=== PATIENT | female | born 1985 | race African-American/Black ===

== ENCOUNTER 2016-07-16 03:34 | Emergency (ER) | payer SELFPAY ==
[2016-07-16] MEDS ORDERED: HYDROCODONE BIT/HOMATROPINE 5-1.5 MG TABLET PO ONE (07:16)
[2016-07-16] MEDS ORDERED: ALBUTEROL SULFATE HFA (90 MCG/PUFF) 8 GM MDI (1 MDI/ER DISP) IH PRN (07:16)
--- NOTE | 2016-07-16 07:23 | ER Document Report ---
ED General - General Chief Complaint: Cold Symptoms Stated Complaint: HEADACHE,SORE THROAT,COUGH Mode of Arrival: Ambulatory Information source: Patient Notes: 22-year-old female presents with complaints of body aches sore throat headache of one week duration. Patient notes that initially started off with a sore throat denies any fevers or chills nausea vomiting or diarrhea. Patient notes to body aches. Chest wall pain when she coughs TRAVEL OUTSIDE OF THE [place] IN LAST 30 DAYS: No - HPI Onset: Last week Onset/Duration: Persistent Quality of pain: Achy Severity: Moderate Pain Level: 2 Associated symptoms: Nonproductive cough, Headache, Sinus pain/drainage Exacerbated by: Denies Relieved by: Denies Similar symptoms previously: No Recently seen / treated by doctor: No - Related Data Allergies/Adverse Reactions: No Known Allergies Allergy (Verified 05/23/16 13:19) Past Medical History - Social History Smoking Status: Current Every Day Smoker Cigarette use (# per day): Yes Chew tobacco use (# tins/day): No Smoking Education Provided: Yes - Patient counselled regarding cessation for 4 minutes Frequency of alcohol use: Occasional Drug Abuse: None Family History: Arthritis, Hypertension, Malignancy, Other - copd and asthma Patient has suicidal ideation: No Patient has homicidal ideation: No Pulmonary Medical History: Reports: Hx Bronchitis - 2013 Renal/ Medical History: Denies: Hx Peritoneal Dialysis - Immunizations Immunizations up to date: Yes Hx Diphtheria, Pertussis, Tetanus Vaccination: Yes - 2010 Review of Systems - Review of Systems Notes: REVIEW OF SYSTEMS: CONSTITUTIONAL : Denies fever, chills, or sweats. Denies recent illness. EENT: Admits to frontal sinus pressure nasal congestion CARDIOVASCULAR: Denies chest pain. Denies palpitations or racing or irregular heart beat. Denies ankle edema. RESPIRATORY: Admits to nonproductive cough GASTROINTESTINAL: Denies abdominal pain or distention. Denies nausea, vomiting , or diarrhea. Denies blood in vomitus, stools, or per rectum. Denies black, tarry stools. Denies constipation. GENITOURINARY: Denies difficulty urinating, painful urination, burning, frequency, blood in urine, or discharge. FEMALE GENITOURINARY: Denies vaginal bleeding, heavy or abnormal periods, irregular periods. Denies vaginal discharge or odor. MUSCULOSKELETAL: Denies back or neck pain or stiffness. Denies joint pain or swelling. SKIN: Denies rash, lesions or sores. HEMATOLOGIC : Denies easy bruising or bleeding. LYMPHATIC: Denies swollen, enlarged glands. NEUROLOGICAL: Admits headache PSYCHIATRIC: Denies anxiety or stress. Denies depression, suicidal ideation, or homicidal ideation. ALL OTHER SYSTEMS REVIEWED AND NEGATIVE. Dictation was performed using Definition 6 voice recognition software PHYSICAL EXAMINATION: GENERAL: Well-appearing, well-nourished and in no acute distress. HEAD: Atraumatic, normocephalic. EYES: Pupils equal round and reactive to light, extraocular movements intact, conjunctiva are normal. ENT: Frontal sinus tenderness on palpation NECK: Normal range of motion, supple without lymphadenopathy LUNGS: Faint wheezing left upper lobe HEART: Regular rate and rhythm without murmurs ABDOMEN: Soft, nontender, nondistended abdomen. No guarding, no rebound. No masses appreciated. Female : deferred Musculoskeletal: Normal range of motion, no pitting or edema. No cyanosis. NEUROLOGICAL: Cranial nerves grossly intact. Normal speech, normal gait. Normal sensory, motor exams PSYCH: Normal mood, normal affect. SKIN: Warm, Dry, normal turgor, no rashes or lesions noted. Physical Exam - Vital signs Vitals: Temp Pulse Resp BP Pulse Ox 98.7 F 88 18 136/90 H 100 07/16/16 03:43 07/16/16 03:43 07/16/16 03:43 07/16/16 03:43 07/16/16 03:43 Course - Re-evaluation Re-evalutation: 07/16/16 07:22 Physical examination does note family wheezing, patient will be started on albuterol. Influenza strep are negative. Patient will be treated for her headache body aches nonproductive cough with Hycodan tablet. Patient is otherwise stable for discharge After performing a Medical Screening Examination, I estimate there is LOW risk for ACUTE GLAUCOMA, TEMPORAL ARTERITIS, MENINGITIS, INCRANIAL HEMORRHAGE, or ISCHEMIC STROKE thus I consider the discharge disposition reasonable. The patient and I have discussed the diagnosis and risks, and we agree with discharging home with close follow-up with the understanding that symptoms and presentations can change. We also discussed returning to the Emergency Department immediately if new or worsening symptoms occur. We have discussed the symptoms which are most concerning (e.g., changing or worsening symptoms, new numbness or weakness, vomiting, fever) that necessitate immediate return. - Vital Signs Vital signs: Temp Pulse Resp BP Pulse Ox 98.7 F 88 18 136/90 H 100 07/16/16 03:43 07/16/16 03:43 07/16/16 03:43 07/16/16 03:43 07/16/16 03:43 Discharge - Discharge Clinical Impression: Encounter for smoking cessation counseling Acute sinusitis Qualifiers: Sinusitis location: frontal Recurrence: non-recurrent Qualified Code(s): J01.10 - Acute frontal sinusitis, unspecified Condition: Stable Disposition: HOME, SELF-CARE Instructions: Headache ([facility]) Additional Instructions: You have been given follow up instructions including low cost follow up with one of the local primary care offices. Follow up with them tomorrow for further care and reevaluation. Return immediately if symptoms worsen Prescriptions: Hydrocodone Bit/Homatropine [Hycodan 5-1.5 mg Tablet] 1 tab PO Q4HP PRN #24 tablet PRN Reason: Forms: Smoking Cessation Education
[2016-07-16 07:45] VITALS: BP 129/90
== END 2016-07-16 07:46 | disposition home or self-care (01) ==
LOC: ER 03:34
DX: J01.10 Acute frontal sinusitis, unspecified (principal); R51 Headache; J02.9 Acute pharyngitis, unspecified; R05 Cough; R07.89 Other chest pain; F17.210 Nicotine dependence, cigarettes, uncomplicated
CPT/HCPCS: 87070; 87804; 87880; 99283; 99406

== ENCOUNTER 2016-11-18 09:36 | Emergency (ER) | payer SELFPAY ==
[2016-11-18 09:45] VITALS: BP 127/72
--- NOTE | 2016-11-18 10:02 | ER Document Report ---
ED Respiratory Problem - General Chief Complaint: Cold Symptoms Stated Complaint: DIFFICULTY BREATHING,COUGH Time Seen by Provider: 11/18/16 09:52 Mode of Arrival: Ambulatory Notes: 30-year-old female presents to ED for cough and cold symptoms 3 days. States she has nasal congestion and drainage headache with sinus pressure cough chest pain and back pain when she coughs which is reproducible with the cough and with palpation sore throat. She states she fell she had a fever last night took some Tylenol but does not have a thermometer at home. Does not know her last menstrual period as she is on Depo. TRAVEL OUTSIDE OF THE [place] IN LAST 30 DAYS: No - HPI Patient complains to provider of: Cough Onset: Other - 3 days Duration: Continuous Initiating Event: URI Quality of pain: Achy Severity: Severe Pain Level: 5 Context: Smoker Cough: Nonproductive Sputum amount: None Associated symptoms: Chest pain/discomfort, Congestion, Cough, PND, Runny nose, Sinus pain/pressure. denies: Wheezing Similar symptoms previously: Yes Recently seen / treated by doctor: No - Related Data Allergies/Adverse Reactions: No Known Allergies Allergy (Verified 11/18/16 09:40) Past Medical History - General Information source: Patient Last Menstrual Period: depo - Social History Smoking Status: Current Every Day Smoker Cigarette use (# per day): Yes - 1/3 ppd Chew tobacco use (# tins/day): No Smoking Education Provided: Yes - less Frequency of alcohol use: Occasional Drug Abuse: None Occupation: [employer] Lives with: Family Family History: Arthritis, Hypertension, Malignancy, Other - copd and asthma Patient has suicidal ideation: No Patient has homicidal ideation: No - Past Medical History Cardiac Medical History: Reports: None Pulmonary Medical History: Reports: Hx Bronchitis - 2013 EENT Medical History: Reports: None Neurological Medical History: Reports: None Endocrine Medical History: Reports: None Renal/ Medical History: Reports: Hx Ovarian Cysts Malignancy Medical History: Reports: None GI Medical History: Reports: None Musculoskeltal Medical History: Reports None Skin Medical History: Reports None Psychiatric Medical History: Reports: None Traumatic Medical History: Reports: None Infectious Medical History: Reports: None Past Surgical History: Reports: Hx Gynecologic Surgery - colposcopy - Immunizations Immunizations up to date: Yes Hx Diphtheria, Pertussis, Tetanus Vaccination: Yes - 2010 Review of Systems - Review of Systems Constitutional: No symptoms reported EENT: Nose discharge, Sinus discharge, Throat swelling Cardiovascular: No symptoms reported Respiratory: Cough Gastrointestinal: No symptoms reported Genitourinary: No symptoms reported Female Genitourinary: No symptoms reported Musculoskeletal: No symptoms reported Skin: No symptoms reported Hematologic/Lymphatic: No symptoms reported Neurological/Psychological: No symptoms reported -: Yes All other systems reviewed and negative Physical Exam - Vital signs Vitals: Temp Pulse Resp BP Pulse Ox 98.2 F 91 16 127/72 H 98 11/18/16 09:41 11/18/16 09:41 11/18/16 09:41 11/18/16 09:41 11/18/16 09:41 Interpretation: Normal - General General appearance: Appears well, Alert - HEENT Head: Normocephalic, Atraumatic Eyes: Normal Pupils: PERRL Ears: Normal External canal: Normal Tympanic membrane: Normal Sinus: Normal Nasal: Swelling, Clear rhinorrhea Mouth/Lips: Normal Mucous membranes: Normal Pharynx: Post nasal drainage Neck: Normal - Respiratory Respiratory status: No respiratory distress Chest status: Nontender Breath sounds: Nonproductive cough Chest palpation: Normal - Cardiovascular Rhythm: Regular Heart sounds: Normal auscultation Murmur: No - Abdominal Inspection: Normal Distension: No distension Bowel sounds: Normal Tenderness: Nontender Organomegaly: No organomegaly - Back Back: Normal, Nontender - Extremities General upper extremity: Normal inspection, Nontender, Normal color, Normal ROM , Normal temperature General lower extremity: Normal inspection, Nontender, Normal color, Normal ROM , Normal temperature, Normal weight bearing. No: Jannie's sign - Neurological Neuro grossly intact: Yes Cognition: Normal Orientation: AAOx4 Chloé Coma Scale Eye Opening: Spontaneous [place] Coma Scale Verbal: Oriented Chloé Coma Scale Motor: Obeys Commands Chloé Coma Scale Total: 15 Speech: Normal Motor strength normal: LUE, RUE, LLE, RLE Sensory: Normal - Psychological Associated symptoms: Normal affect, Normal mood - Skin Skin Temperature: Warm Skin Moisture: Dry Skin Color: Normal Course - Vital Signs Vital signs: Temp Pulse Resp BP Pulse Ox 98.2 F 91 16 127/72 H 98 11/18/16 09:41 11/18/16 09:41 11/18/16 09:41 11/18/16 09:41 11/18/16 09:41 Discharge - Discharge Clinical Impression: URI (upper respiratory infection) Qualifiers: URI type: unspecified URI Qualified Code(s): J06.9 - Acute upper respiratory infection, unspecified Condition: Stable Disposition: HOME, SELF-CARE Instructions: Family Physicians / Practices Additional Instructions: UPPER RESPIRATORY ILLNESS: You have a viral infection of the respiratory passages -- a "cold." This common infection causes nasal congestion, drainage, and often sore throat and cough. It is highly contagious. The disease usually lasts about 10 to 14 days. There is no "cure" for the viral infection -- it must run its course. If there is a complication, such as bacterial infection in the nose, sinuses, middle ear, or bronchial tubes, antibiotics may be required. The antibiotics won't affect the virus. Drink plenty of fluids. A humidifier may help. An expectorant medication or decongestant may make you more comfortable. Use acetaminophen or ibuprofen for fever or aches. See the doctor if fever persists over two days, if there is any significant worsening of your symptoms, or if you simply fail to improve as expected. DECONGESTANT MEDICATION: A decongestant medicine has been prescribed. Often this medicine is combined in the same tablet with an antihistamine or expectorant. This type of medicine is helpful in treating a bad cold or sinus condition, as well as in treatment of the nasal congestion of hay fever. It is not of much benefit for lung infections. Decongestant medicines are related to stimulants. They can cause an increase in blood pressure and heart rate. Persons with heart disease and high blood pressure should not take decongestants without discussing this with the physician. If you develop palpitations, chest pain, headache, or tremors, stop the medicine and consult your physician. COUGH-SUPPRESSANT & EXPECTORANT MEDICATION: You are to use a cough medication as needed for relief of symptoms. This medicine is a combination of an expectorant (to make the mucous thinner and more easily "coughed up") and a cough suppressant (to reduce the frequency of coughing). The cough-suppressant medicine is related to narcotics. You may experience mild nausea and sleepiness. Some patients who are very sensitive to narcotics may have stomach pain from this medicine. Taking the medicine with food reduces these side effects. Do not drive or work with machinery until you know how this medicine affects you. The expectorant should have no side effects. Iodine-containing expectorants (such as organidin) should not be taken by persons with active thyroid disease unless approved by your doctor. Call the doctor if you develop shortness of breath, hives, rash, itching, lightheadedness, or severe nausea and vomiting. USE OF ACETAMINOPHEN (Tylenol): Acetaminophen may be taken for pain relief or fever control. It's much safer than aspirin, offering a wider range of "safe" dosages. It is safe during . Some brand names are Tylenol, Panadol, Datril, Anacin 3, Tempra, and Liquiprin. Acetaminophen can be repeated every four hours. The following are maximum recommended dosages: >89 pounds or adults 650 mg to 900 mg Acetaminophen can be repeated every four hours. Maximum dose not to exceed 4000 mg a day. SMOKING: If you smoke, you should stop smoking. The tar and chemicals in cigarette smoke are harmful. Smoking has been shown to cause: emphysema chronic bronchitis lung cancer mouth and throat cancer stomach and pancreas cancer premature aging defects In addition, smoking increases ear and lung infections in children of smokers. FOLLOW-UP CARE: If you have been referred to a physician for follow-up care, call the physician s office for an appointment as you were instructed or within the next two days. If you experience worsening or a significant change in your symptoms, notify the physician immediately or return to the Emergency Department at any time for re-evaluation. Forms: Elevated Blood Pressure, Smoking Cessation Education, Return to Work
[2016-11-18] MEDS ORDERED: LORATADINE 10 MG TABLET PO ONE (10:27)
[2016-11-18] MEDS ORDERED: IBUPROFEN 800 MG TABLET PO ONE (10:27)
[2016-11-18] MEDS ORDERED: GUAIFENESIN 600 MG TABLET.SA PO ONE (10:27)
[2016-11-18] MEDS ORDERED: PSEUDOEPHEDRINE HCL 30 MG TABLET PO ONE (10:27)
== END 2016-11-18 10:45 | disposition home or self-care (01) ==
LOC: ER 09:36
DX: J06.9 Acute upper respiratory infection, unspecified (principal); R06.00 Dyspnea, unspecified; R09.81 Nasal congestion; F17.210 Nicotine dependence, cigarettes, uncomplicated
CPT/HCPCS: 87070; 87077; 87880; 99283

== ENCOUNTER 2017-01-06 08:23 | Emergency (ER) | payer SELFPAY ==
[2017-01-06 08:39] VITALS: BP 118/76
[2017-01-06] MEDS ORDERED: DEXAMETHASONE 4 MG TABLET PO ONE (08:56)
[2017-01-06] MEDS ORDERED: IBUPROFEN 600 MG TABLET PO ONE (08:57)
--- NOTE | 2017-01-06 08:59 | ER Document Report ---
ED ENT - General Chief Complaint: Sore Throat Stated Complaint: SORE THROAT Time Seen by Provider: 01/06/17 08:39 Notes: The patient is a 31-year-old female who presents with 4 days of sore throat and fever up to 101. She is having pain when she swallows, but she is able to drink liquids. She denies cough, neck stiffness, nausea, vomiting or abdominal pain. TRAVEL OUTSIDE OF THE [place] IN LAST 30 DAYS: No - Related Data Allergies/Adverse Reactions: No Known Allergies Allergy (Verified 11/18/16 09:40) Past Medical History - General Information source: Patient - Social History Smoking Status: Current Every Day Smoker Family History: Arthritis, Hypertension, Malignancy, Other - copd and asthma Pulmonary Medical History: Reports: Hx Bronchitis - 2013 Renal/ Medical History: Reports: Hx Ovarian Cysts. Denies: Hx Peritoneal Dialysis Past Surgical History: Reports: Hx Gynecologic Surgery - colposcopy - Immunizations Immunizations up to date: Yes Hx Diphtheria, Pertussis, Tetanus Vaccination: Yes - 2010 Review of Systems - Review of Systems Notes: REVIEW OF SYSTEMS: CONSTITUTIONAL: +fevers, -chills EENT: -eye pain, -difficulty swallowing, -nasal congestion, +sore throat CARDIOVASCULAR:-chest pain, -syncope. RESPIRATORY: -cough, -SOB GASTROINTESTINAL: -abdominal pain, - nausea, -vomiting, -diarrhea GENITOURINARY: -dysuria, -hematuria MUSCULOSKELETAL: -back pain, -neck pain SKIN: -rash or skin lesions. HEMATOLOGIC: -easy bruising or bleeding. LYMPHATIC: -swollen, enlarged glands. NEUROLOGICAL: -altered mental status or loss of consciousness, -headache, - neurologic symptoms PSYCHIATRIC: -anxiety, -depression. ALL OTHER SYSTEMS REVIEWED AND NEGATIVE. Physical Exam - Vital signs Vitals: Temp Pulse Resp BP Pulse Ox 98.2 F 84 16 118/76 100 01/06/17 08:33 01/06/17 08:33 01/06/17 08:33 01/06/17 08:01/06/17 08:33 - Notes Notes: PHYSICAL EXAMINATION: GENERAL: Well-appearing, well-nourished and in no acute distress. HEAD: Atraumatic, normocephalic. EYES: Pupils equal round and reactive to light, extraocular movements intact, sclera anicteric, conjunctiva are normal. ENT: nares patent, symmetrical oropharynx erythematous with exudates. Moist mucous membranes. NECK: Normal range of motion, supple with right-sided anterior cervical lymphadenopathy LUNGS: Breath sounds clear to auscultation bilaterally and equal. No wheezes rales or rhonchi. HEART: Regular rate and rhythm without murmurs ABDOMEN: Soft, nontender, normoactive bowel sounds. No guarding, no rebound. No masses appreciated. EXTREMITIES: Normal range of motion, no pitting or edema. No cyanosis. NEUROLOGICAL: Cranial nerves grossly intact. Normal speech, normal gait. Normal sensory and motor exams. PSYCH: Normal mood, normal affect. SKIN: Warm, Dry, normal turgor, no rashes or lesions noted. Course - Re-evaluation Re-evalutation: Patient had positive strep culture last month. She has 4 Centor criteria. Will treat presumably for strep pharyngitis with steroids and amoxicillin with follow-up with her primary care physician. No evidence of MID WIFE, RPA or epiglottitis at this time. - Vital Signs Vital signs: Temp Pulse Resp BP Pulse Ox 98.2 F 84 16 118/76 100 01/06/17 08:33 01/06/17 08:33 01/06/17 08:33 01/06/17 08:33 01/06/17 08:33 Discharge - Discharge Clinical Impression: Strep pharyngitis Condition: Stable Disposition: HOME, SELF-CARE Additional Instructions: SORE THROAT: Sore throats may be caused by viruses, bacteria, or fungi. Most are due to a virus, and must get better on their own. Bacterial sore throats, particularly those due to "strep," need treatment with antibiotics. If an antibiotic is prescribed, be sure to take the medication for a full 10 days. Failure to take the antibiotic can result in complications such as rheumatic fever. Sometimes, an injection of antibiotics is given instead of pills or liquid. This single "shot" is equal in effectiveness to the oral medication. To relieve symptoms, take acetaminophen for pain. Sip clear liquids frequently, or eat popsicles or ice chips. Anesthetic sprays or lozenges may help. Make sure the air in the room is not too dry. Avoid using decongestants or antihistamines. Call the doctor if there is no improvement in two days, or if you have difficulty breathing, increasing throat pain, high fever, rash, or frequent vomiting. STREP THROAT: Your sore throat is due to the streptococcus germ (strep throat). Strep throat usually makes you feel quite ill with fever and aches, headache, swollen sore throat, and tender bumps under the angles of the jaw. Strep throat requires antibiotic treatment. Although the sore throat may go away by itself, complications such as rheumatic fever, kidney disease, or throat abscess can occur. We usually prescribe antibiotics by mouth. Be sure to take the medicine until it's gone. If you stop early, the strep may come back. If you are vomiting, are severely ill, or can't remember to take pills, we can give you an antibiotic shot. Take acetaminophen or ibuprofen for pain and fever. Sip frequent clear liquids, or use popsicles or ice chips. Anesthetic sprays or lozenges may help. Make sure the air in the room is not too dry. Avoid using decongestants or antihistamines. Call the doctor if there is no improvement in three days, or if you have difficulty breathing, increasing throat pain, high fever, rash, or frequent vomiting. STEROID MEDICATION: You have been given a medicine of the cortisone/steroid class. This medication is used to control inflammation or allergy. It is usually only given for a short period of time, until the acute process subsides. There are usually no side effects from short-term use of cortisone-like medications. Some persons feel an increased sense of well-being and are not sleepy at bedtime. Long-term use of cortisone medications is best avoided, unless required for a severe condition. If your condition does not remit, or relapses after the course of corticosteroid medication, you should consult your physician. FOLLOW-UP CARE: If you have been referred to a physician for follow-up care, call the physician s office for an appointment as you were instructed or within the next two days. If you experience worsening or a significant change in your symptoms, notify the physician immediately or return to the Emergency Department at any time for re-evaluation. Prescriptions: Amoxicillin 1 tab PO BID #14 tab Forms: Return to Work
== END 2017-01-06 09:08 | disposition home or self-care (01) ==
LOC: ER 08:23
DX: J02.0 Streptococcal pharyngitis (principal); J02.9 Acute pharyngitis, unspecified; R50.9 Fever, unspecified; F17.200 Nicotine dependence, unspecified, uncomplicated
CPT/HCPCS: 99282

== ENCOUNTER 2017-07-12 12:01 | Emergency (ER) | payer SELFPAY ==
[2017-07-12] MEDS ORDERED: IBUPROFEN 800 MG TABLET PO ONE (13:16)
--- NOTE | 2017-07-12 13:17 | ER Document Report ---
HPI - HPI Patient complains to provider of: Sore throat, body aches Onset: Other - 3 days Onset/Duration: Persistent Quality of pain: Achy Pain Level: 5 Associated Symptoms: Chest pain, Sore throat. denies: Nonproductive cough, Productive cough, Diarrhea, Nausea, Vomiting Exacerbated by: Denies Relieved by: Denies Similar symptoms previously: No Recently seen / treated by doctor: No - ROS ROS below otherwise negative: Yes Systems Reviewed and Negative: Yes All other systems reviewed and negative - CONSTITUTIONAL Constitutional: DENIES: Fever, Chills - EENT EENT: REPORTS: Sore Throat - NEURO Neurology: DENIES: Headache - CARDIOVASCULAR Cardiovascular: REPORTS: Chest pain - RESPIRATORY Respiratory: DENIES: Trouble Breathing, Coughing - GASTROINTESTINAL Gastrointestinal: DENIES: Abdominal Pain, Nausea, Patient vomiting - REPRODUCTIVE Reproductive: DENIES: : - MUSCULOSKELETAL Musculoskeletal: REPORTS: Back Pain. DENIES: Neck Pain - DERM Skin Color: Normal Skin Problems: None Past Medical History - General Information source: Patient - Social History Smoking Status: Never Smoker Frequency of alcohol use: Occasional Drug Abuse: None Occupation: [employer] Lives with: Family Family History: Arthritis, Hypertension, Malignancy, Other - copd and asthma Pulmonary Medical History: Reports: Hx Bronchitis - 2013 Renal/ Medical History: Reports: Hx Ovarian Cysts. Denies: Hx Peritoneal Dialysis Past Surgical History: Reports: Hx Gynecologic Surgery - colposcopy - Immunizations Immunizations up to date: Yes Hx Diphtheria, Pertussis, Tetanus Vaccination: Yes - 2010 Vertical Provider Document - CONSTITUTIONAL Agree With Documented VS: Yes Exam Limitations: No Limitations General Appearance: WD/WN, No Apparent Distress - INFECTION CONTROL TRAVEL OUTSIDE OF THE [place] IN LAST 30 DAYS: No - HEENT HEENT: Atraumatic, Normocephalic, Pharyngeal Tenderness, Pharyngeal Erythema. negative: Pharyngeal Exudate, Tympanic Membrane Red, Tympanic Membrane Bulging - NECK Neck: Normal Inspection, Supple. negative: Lymphadenopathy-Left, Lymphadenopathy-Right - RESPIRATORY Respiratory: Breath Sounds Normal, No Respiratory Distress. negative: Chest Non -Tender - Anterior chest wall tenderness with palpation, Rales, Rhonchi, Wheezing O2 Sat by Pulse Oximetry: 100 - CARDIOVASCULAR Cardiovascular: Regular Rate, Regular Rhythm, No Murmur - GI/ABDOMEN Gastrointestinal: Abdomen Soft, Abdomen Non-Tender - BACK Back: CVA Tenderness-Right, CVA Tenderness-Left - MUSCULOSKELETAL/EXTREMETIES Musculoskeletal/Extremeties: JORGE BURRIS - NEURO Level of Consciousness: Awake, Alert, Appropriate Motor/Sensory: No Motor Deficit - DERM Integumentary: Warm, Dry, No Rash Course - Re-evaluation Re-evalutation: 07/12/17 14:46 The patient has atypical chest pain as the patient's chest pain is not suggestive of pulmonary embolus, cardiac ischemia, aortic dissection, or other serious etiology. Given the extremely low risk of these diagnoses for the test in evaluation for these possibilities does not appear to be indicated at this time. Patient has been instructed to return if the symptoms worsen or change in any way. Without any previous cardiac history. Patient's chest pain symptoms reproducible with palpation and patient has generalized body aches. No respiratory distress, no concern for pneumonia at this time. - Vital Signs Vital signs: Temp Pulse Resp BP Pulse Ox 98.1 F 80 20 122/66 100 07/12/17 12:04 07/12/17 12:04 07/12/17 12:04 07/12/17 12:04 07/12/17 12:04 - Laboratory Laboratory results interpreted by me: 07/12/17 14:45 Labs- Entire Visit 07/12/17 07/12/17 12:33 13:40 Urine Color YELLOW Urine Appearance SLIGHTLY-CLOUDY Urine pH 5.0 Ur Specific Newcomb 1.032 Urine Protein NEGATIVE Urine Glucose (UA) NEGATIVE Urine Ketones TRACE H Urine Blood NEGATIVE Urine Nitrite NEGATIVE Urine Bilirubin NEGATIVE Urine Urobilinogen 4.0 H Ur Leukocyte Esterase NEGATIVE Urine WBC (Auto) 1 Urine RBC (Auto) 3 Squamous Epi Cells Auto 1 Urine Mucus (Auto) MOD Urine Ascorbic Acid NEGATIVE Group A Strep Rapid NEGATIVE - Diagnostic Test Radiology reviewed: Reports reviewed - EKG Interpretation by Me EKG shows normal: Sinus rhythm Rate: Normal Discharge - Discharge Clinical Impression: Sore throat, Myalgia Chest pain Qualifiers: Chest pain type: unspecified Qualified Code(s): R07.9 - Chest pain, unspecified Condition: Stable Disposition: HOME, SELF-CARE Instructions: Chest Wall Pain ([facility]), Myalagia (Muscle Pain) ([facility]), Sore Throat ([facility]) Additional Instructions: Return immediately for any new or worsening symptoms Followup with your primary care provider, call tomorrow to make a followup appointment Culture is pending, we will call if you need any different treatment Prescriptions: Naproxen [Naprosyn 250 Nmg Tablet] 1 tab PO BID #14 tablet Forms: Return to Work Referrals: [facility] [Provider Group] - Follow up as needed [facility] [Provider Group] - Follow up as needed
--- NOTE | 2017-07-12 13:50 | RADIOLOGY REPORT (SQ) ---
EXAM DESCRIPTION: CHEST PA/LAT COMPLETED DATE/TIME: 07/12/2017 1:30 pm REASON FOR STUDY: cp COMPARISON: February 2014 EXAM PARAMETERS: NUMBER OF VIEWS: two views TECHNIQUE: Digital Frontal and Lateral radiographic views of the chest acquired. RADIATION DOSE: NA LIMITATIONS: none FINDINGS: LUNGS AND PLEURA: No opacities, masses or pneumothorax. No pleural effusion. MEDIASTINUM AND HILAR STRUCTURES: No masses or contour abnormalities. HEART AND VASCULAR STRUCTURES: Heart normal size. No evidence for failure. BONES: No acute findings. HARDWARE: None in the chest. OTHER: No other significant finding. IMPRESSION: NO SIGNIFICANT RADIOGRAPHIC FINDING IN THE CHEST. TECHNICAL DOCUMENTATION: JOB ID: [id number] [employer]- All Rights Reserved
[2017-07-12 14:11] LABS: APPEARANCE,URINE SLIGHTLY-CLOUDY; BILIRUBIN,URINE NEGATIVE (NEGATIVE); COLOR,URINE YELLOW; GLUCOSE, URINE NEGATIVE (NEGATIVE); KETONES,URINE TRACE mg/dL (NEGATIVE); LEUKOCYTE ESTERASE,URINE NEGATIVE (NEGATIVE); NITRITE,URINE NEGATIVE (NEGATIVE); PROTEIN,URINE NEGATIVE (NEGATIVE); URINE SPECIFIC GRAVITY 1.032
[2017-07-12 14:56] VITALS: BP 120/65
--- NOTE | 2017-07-12 19:02 | EKG REPORT ---
SEVERITY:- NORMAL ECG - SINUS RHYTHM : Confirmed by: Sudheer Watson MD 12-Jul-2017 19:01:26
== END 2017-07-12 14:56 | disposition home or self-care (01) ==
LOC: ER 12:01
DX: J02.9 Acute pharyngitis, unspecified (principal); M79.1 Myalgia; R07.9 Chest pain, unspecified
CPT/HCPCS: 71046; 81001; 87070; 87880; 93005; 93010; 99284

== ENCOUNTER 2018-05-07 16:49 | Emergency (ER) | payer SELFPAY ==
[2018-05-07 16:54] VITALS: BP 104/61
[2018-05-07] MEDS ORDERED: PREDNISONE 20 MG TABLET PO ONE (17:37)
[2018-05-07] MEDS ORDERED: IPRATROPIUM/ALBUTEROL 0.5-2.5 MG/3 ML AMPUL NEB ONE (17:37)
[2018-05-07] MEDS: ALBUTEROL SULFATE 0.083% NEB 2.5 MG/3 ML AMPUL NEB SCH ×2 (17:46→18:24)
--- NOTE | 2018-05-07 18:34 | RADIOLOGY REPORT (SQ) ---
EXAM DESCRIPTION: CHEST 2 VIEWS COMPLETED DATE/TIME: 05/07/2018 6:16 pm REASON FOR STUDY: cough congestion wheezing fever COMPARISON: 07/12/2017. EXAM PARAMETERS: NUMBER OF VIEWS: two views TECHNIQUE: Digital Frontal and Lateral radiographic views of the chest acquired. RADIATION DOSE: NA LIMITATIONS: none FINDINGS: LUNGS AND PLEURA: No opacities, masses or pneumothorax. No pleural effusion. MEDIASTINUM AND HILAR STRUCTURES: No masses or contour abnormalities. HEART AND VASCULAR STRUCTURES: Heart normal size. No evidence for failure. BONES: No acute findings. HARDWARE: None in the chest. OTHER: No other significant finding. IMPRESSION: NO ACUTE RADIOGRAPHIC FINDING IN THE CHEST. TECHNICAL DOCUMENTATION: JOB ID: [id number] [employer]- All Rights Reserved Reading location - IP/workstation name: [email or web address]
[2018-05-07] MEDS ORDERED: ACETAMINOPHEN 325 MG TABLET PO ONE (18:59)
--- NOTE | 2018-05-07 19:05 | ER Document Report ---
ED Respiratory Problem - General Chief Complaint: Congestion Stated Complaint: SORE THROAT Time Seen by Provider: 05/07/18 17:19 Mode of Arrival: Ambulatory Information source: Patient Notes: 32-year-old female presents to ED for complaint of fever cough congestion sore throat chest discomfort and wheezing. She states the cough and cold congestion started Tuesday or Tuesday but the fever started yesterday. She states she been taking [id number] medications with no improvement. She states she has not taken ibuprofen since [employer]. Patient is alert and oriented, pupils equal react light, patient is speaking in full sentences but she does have a wheeze audible. Patient is coughing and congested. Patient walking with a even steady gait. TRAVEL OUTSIDE OF THE [place] IN LAST 30 DAYS: No - HPI Patient complains to provider of: Cough Onset: Other - See above Duration: Worse/persistent Initiating Event: URI Quality of pain: Achy, Other Severity: Moderate Pain Level: 3 Short of Breath: Mild Cough: Nonproductive Associated symptoms: Chills, Congestion, Cough, Fever, PND, Runny nose, Sinus pain/pressure, Wheezing Similar symptoms previously: Yes Recently seen / treated by doctor: No - Related Data Allergies/Adverse Reactions: No Known Allergies Allergy (Verified 07/12/17 12:02) Past Medical History - General Information source: Patient - Social History Smoking Status: Former Smoker Chew tobacco use (# tins/day): No Frequency of alcohol use: Occasional Drug Abuse: None Lives with: Family Family History: Arthritis, Hypertension, Malignancy, Other - copd and asthma Patient has suicidal ideation: No Patient has homicidal ideation: No - Past Medical History Cardiac Medical History: Reports: None Pulmonary Medical History: Reports: Hx Bronchitis - 2013 EENT Medical History: Reports: None Neurological Medical History: Reports: None Endocrine Medical History: Reports: None Renal/ Medical History: Reports: Hx Ovarian Cysts Malignancy Medical History: Reports: None GI Medical History: Reports: None Past Surgical History: Reports: Hx Gynecologic Surgery - colposcopy - Immunizations Immunizations up to date: Yes Hx Diphtheria, Pertussis, Tetanus Vaccination: Yes - 2010 Review of Systems - Review of Systems Notes: REVIEW OF SYSTEMS: CONSTITUTIONAL : Complains of cough cold congestion since Tuesday and fever since yesterday EENT: Complains of cough congestion sore throat fever see HPI CARDIOVASCULAR: Denies chest pain. Denies palpitations or racing or irregular heart beat. Denies ankle edema. RESPIRATORY: Complains of cough cold congestion sore throat since Tuesday, fever yesterday GASTROINTESTINAL: Denies abdominal pain or distention. Denies nausea, vomiting , or diarrhea. Denies blood in vomitus, stools, or per rectum. Denies black, tarry stools. Denies constipation. GENITOURINARY: Denies difficulty urinating, painful urination, burning, frequency, blood in urine, or discharge. FEMALE GENITOURINARY: Denies vaginal bleeding, heavy or abnormal periods, irregular periods. Denies vaginal discharge or odor. MUSCULOSKELETAL: Denies back or neck pain or stiffness. Denies joint pain or swelling. SKIN: Denies rash, lesions or sores. HEMATOLOGIC : Denies easy bruising or bleeding. LYMPHATIC: Denies swollen, enlarged glands. NEUROLOGICAL: Denies confusion or altered mental status. Denies passing out or loss of consciousness. Denies dizziness or lightheadedness. Denies headache. Denies weakness or paralysis or loss of use of either side. Denies problems with gait or speech. Denies sensory loss, numbness, or tingling. Denies seizures. PHYSICAL EXAMINATION: GENERAL: Well-appearing, well-nourished and in no acute distress. HEAD: Atraumatic, normocephalic. EYES: Pupils equal round and reactive to light, extraocular movements intact, conjunctiva are normal. ENT: Swollen nasal turbinates with yellow-green drainage, erythema to the oropharynx with no enlarged tonsils or exudate moist mucous membranes. NECK: Normal range of motion, supple without lymphadenopathy LUNGS: No rhonchi or wheezes noted but she does have inspiratory wheezes throughout, patient short of breath with nonproductive cough. HEART: Regular rate and rhythm without murmurs ABDOMEN: Soft, nontender, nondistended abdomen. No guarding, no rebound. No masses appreciated. Female : deferred Musculoskeletal: Normal range of motion, no pitting or edema. No cyanosis. NEUROLOGICAL: Cranial nerves grossly intact. Normal speech, normal gait. Normal sensory, motor exams PSYCH: Normal mood, normal affect. SKIN: Warm, Dry, normal turgor, no rashes or lesions noted. PSYCHIATRIC: Denies anxiety or stress. Denies depression, suicidal ideation, or homicidal ideation. ALL OTHER SYSTEMS REVIEWED AND NEGATIVE. Dictation was performed using [employer] voice recognition software Physical Exam - Vital signs Vitals: Temp Pulse Resp BP Pulse Ox 98.7 F 85 20 104/61 100 05/07/18 16:53 05/07/18 16:53 05/07/18 16:53 05/07/18 16:53 05/07/18 16:53 Course - Re-evaluation Re-evalutation: 05/07/18 20:30 Patient was treated with steroids and nebulized bronchodilators. After the treatments she was feeling much better except for a little shaky from the nebulizers. She states she was able to breathe much better. Her lungs were clear with no wheezes. Patient was discharged home with prescription for prednisone and albuterol inhaler and instructed to follow-up with her primary doctor tomorrow. Patient verbalized understanding and agreement with treatment plan. - Vital Signs Vital signs: Temp Pulse Resp BP Pulse Ox 98.7 F 85 20 104/61 100 05/07/18 16:53 05/07/18 16:53 05/07/18 16:53 05/07/18 16:53 05/07/18 16:53 - Diagnostic Test Radiology reviewed: Image reviewed, Reports reviewed Discharge - Discharge Clinical Impression: URI (upper respiratory infection) Qualifiers: URI type: unspecified URI Qualified Code(s): J06.9 - Acute upper respiratory infection, unspecified Condition: Stable Disposition: HOME, SELF-CARE Instructions: Family Physicians / Practices Additional Instructions: UPPER RESPIRATORY ILLNESS: You have a viral infection of the respiratory passages -- a "cold." This common infection causes nasal congestion, drainage, and often sore throat and cough. It is highly contagious. The disease usually lasts about 10 to 14 days. There is no "cure" for the viral infection -- it must run its course. If there is a complication, such as bacterial infection in the nose, sinuses, middle ear, or bronchial tubes, antibiotics may be required. The antibiotics won't affect the virus. Drink plenty of fluids. A humidifier may help. An expectorant medication or decongestant may make you more comfortable. Use acetaminophen or ibuprofen for fever or aches. See the doctor if fever persists over two days, if there is any significant worsening of your symptoms, or if you simply fail to improve as expected. BRONCHOSPASM: You have tightness in the bronchial tubes, called bronchospasm. This often occurs with bronchial infections. Allergies, inhaled chemicals, and polluted or cold air can also provoke bronchospasm. It's more likely in patients with asthma in the family. Emergency treatment of bronchospasm may include adrenaline shots or bronchodilator aerosol. You may feel lightheaded and have a rapid pulse for an hour or two. Rest and get plenty of fluids. At home, we'll treat you with a bronchodilator inhaler. Antibiotics and corticosteroids may be required for some patients. Until you recover, avoid chemical fumes, dusts, pollens, and exercising in very cold or dry air. If you smoke, stop now!! If you develop a fever, increased wheezing, chest pain, or severe shortness of breath, you should contact the doctor immediately. COUGH-SUPPRESSANT & EXPECTORANT MEDICATION: You are to use a cough medication as needed for relief of symptoms. This medicine is a combination of an expectorant (to make the mucous thinner and more easily "coughed up") and a cough suppressant (to reduce the frequency of coughing). The cough-suppressant medicine is related to narcotics. You may experience mild nausea and sleepiness. Some patients who are very sensitive to narcotics may have stomach pain from this medicine. Taking the medicine with food reduces these side effects. Do not drive or work with machinery until you know how this medicine affects you. The expectorant should have no side effects. Iodine-containing expectorants (such as organidin) should not be taken by persons with active thyroid disease unless approved by your doctor. Call the doctor if you develop shortness of breath, hives, rash, itching, lightheadedness, or severe nausea and vomiting. INHALED BRONCHODILATORS: You have received a treatment of and/or prescription for an inhaled bronchodilator -- a medication which stimulates the airways in the lung to dilate. This improves the flow of air in asthma, bronchitis, and emphysema. These medicines have some similarity to adrenaline, and can cause similar side effects: shakiness, racing heart, and a sense of nervousness. These side effects decrease with time. Contact your doctor if these side effects are severe. Do not over-use the medicine. Too-frequent use of the inhaler may make it ineffective. Call your doctor if the inhaler is not controlling your symptoms at the prescribed doses. STEROID MEDICATION: You have been given a medicine of the cortisone/steroid class. This medication is used to control inflammation or allergy. It is usually only given for a short period of time, until the acute process subsides. There are usually no side effects from short-term use of cortisone-like medications. Some persons feel an increased sense of well-being and are not sleepy at bedtime. Long-term use of cortisone medications is best avoided, unless required for a severe condition. If your condition does not remit, or relapses after the course of corticosteroid medication, you should consult your physician. USE OF ACETAMINOPHEN (Tylenol): Acetaminophen may be taken for pain relief or fever control. It's much safer than aspirin, offering a wider range of "safe" dosages. It is safe during . Some brand names are Tylenol, Panadol, Datril, Anacin 3, Tempra, and Liquiprin. Acetaminophen can be repeated every four hours. The following are maximum recommended dosages: >89 pounds or adults 650 mg to 900 mg Acetaminophen can be repeated every four hours. Maximum dose not to exceed 4000 mg a day. FOLLOW-UP CARE: If you have been referred to a physician for follow-up care, call the physician s office for an appointment as you were instructed or within the next two days. If you experience worsening or a significant change in your symptoms, notify the physician immediately or return to the Emergency Department at any time for re-evaluation. Prescriptions: Albuterol Sulfate [Proair HFA Inhalation Aerosol 8.5 gm MDI] 2 puff IH Q4H PRN # 1 mdi PRN Reason: Prednisone [Deltasone 20 mg Tablet] 3 tab PO DAILY 5 Days tablet Forms: Return to Work
== END 2018-05-07 19:17 | disposition home or self-care (01) ==
LOC: ER 16:49
DX: J06.9 Acute upper respiratory infection, unspecified (principal); R09.81 Nasal congestion; R50.9 Fever, unspecified; R05 Cough; J02.9 Acute pharyngitis, unspecified; R07.9 Chest pain, unspecified; R06.2 Wheezing; Z87.891 Personal history of nicotine dependence
CPT/HCPCS: 94640 ×2; 99283; 87070; 87880; 87077; 71046; J7512; J7620

== ENCOUNTER 2018-09-17 08:55 | Emergency (ER) | payer SELFPAY ==
[2018-09-17] MEDS ORDERED: ONDANSETRON 4 MG TAB.RAPDIS PO ONE (09:37)
[2018-09-17] MEDS ORDERED: ACETAMINOPHEN 325 MG TABLET PO ONE (09:37)
--- NOTE | 2018-09-17 09:38 | ER Document Report ---
ED Medical Screen (RME) - General Chief Complaint: Pelvic Pain Stated Complaint: PELVIC PAIN/CRAMPING Time Seen by Provider: 09/17/18 09:31 TRAVEL OUTSIDE OF THE [place] IN LAST 30 DAYS: No - HPI Notes: 09/17/18 09:34 Patient is a 32-year-old female 1 previous miscarriage who believes that she is early in , unknown exact gestation due to irregular menstrual cycles who presents planing of severe pelvic pain/cramping and light vaginal bleeding that began this morning. Patient states that she awoke at 0200 in a lot of pelvic pain bilaterally, but did not see any bleeding for a few hours. Denies drug allergies. Denies SANTOS, fever, neck pain, URI, CP, SOB, diarrhea, or rash. I have treated and performed a rapid initial assessment of this patient. A comprehensive ED assessment and evaluation of the patient, analysis of test results and completion of medical decision making process will be conducted by additional ED providers. PHYSICAL EXAMINATION: GENERAL: Well-appearing, well-nourished and in no acute resp distress. A&Ox4. Answers questions appropriately. Pt does appear uncomfortable when standing. LUNGS: Breath sounds clear to auscultation bilaterally and equal. No wheezes rales or rhonchi. HEART: Regular rate and rhythm without murmurs, rubs, gallops. ABDOMEN: Soft, nondistended abdomen. No guarding, no rebound. Normal bowel sounds present. No CVA tenderness bilaterally. + lower abd tenderness (cannot elicit thorough abd exam w/o table, however). Extremities: No cyanosis, clubbing, or edema b/l. NEUROLOGICAL: Normal speech, normal gait. PSYCH: Normal mood, normal affect. - Related Data Allergies/Adverse Reactions: No Known Allergies Allergy (Verified 07/12/17 12:02) Past Medical History - Social History Family history: Reviewed & Not Pertinent Pulmonary Medical History: Reports: Hx Bronchitis - 2013 Renal/ Medical History: Reports: Hx Ovarian Cysts. Denies: Hx Peritoneal Dialysis Past Surgical History: Reports: Hx Gynecologic Surgery - colposcopy - Immunizations Immunizations up to date: Yes Hx Diphtheria, Pertussis, Tetanus Vaccination: Yes - 2010 Physical Exam - Vital signs Vitals: Temp Pulse Resp BP Pulse Ox 98.1 F 71 16 127/72 H 99 09/17/18 09:15 09/17/18 09:15 09/17/18 09:15 09/17/18 09:15 09/17/18 09:15 Course - Vital Signs Vital signs: Temp Pulse Resp BP Pulse Ox 98.1 F 71 16 127/72 H 99 09/17/18 09:15 09/17/18 09:15 09/17/18 09:15 09/17/18 09:15 09/17/18 09:15
[2018-09-17 10:07] LABS: ABSOLUTE EOSINOPHILS # (AUTO) 0.2 10^3/uL (0.0-0.6); ABSOLUTE LYMPHOCYTES (AUTO) 2.9 10^3/uL (0.5-4.7); ABSOLUTE MONOCYTES (AUTO) 0.5 10^3/uL (0.1-1.4); ABSOLUTE NEUT (AUTO) 2.7 10^3/uL (1.7-8.2); BASOPHILS % (AUTO) 0.4 % (0-2); EOSINOPHILS % (AUTO) 3.6 % (0-6); HEMATOCRIT 40.2 % (36.0-47.0); HEMOGLOBIN 13.4 g/dL (12.0-15.5); LYMPHOCYTES % (AUTO) 45.5 % (13-45); MEAN CORPUSCULAR HEMOGLOBIN 27.8 pg (27.0-33.4); MEAN CORPUSCULAR HGB CONC 33.4 g/dL (32.0-36.0); MEAN CORPUSCULAR VOLUME 83 fl (80-97); MONOCYTES % (AUTO) 7.4 % (3-13); PLATELET COUNT 243 10^3/uL (150-450); RED BLOOD COUNT 4.82 10^6/uL (3.72-5.28); RED CELL DISTRIBUTION WIDTH 14.2 % (11.5-14.0); SEGMENTED NEUTROPHILS % (AUTO) 43.1 % (42-78); TOTAL CELLS COUNTED % (AUTO) 100 %; WHITE BLOOD COUNT 6.3 10^3/uL (4.0-10.5)
[2018-09-17 10:12] LABS: APPEARANCE,URINE CLEAR; BILIRUBIN,URINE NEGATIVE (NEGATIVE); COLOR,URINE YELLOW; GLUCOSE, URINE NEGATIVE (NEGATIVE); KETONES,URINE NEGATIVE (NEGATIVE); LEUKOCYTE ESTERASE,URINE NEGATIVE (NEGATIVE); NITRITE,URINE NEGATIVE (NEGATIVE); PROTEIN,URINE NEGATIVE (NEGATIVE); URINE SPECIFIC GRAVITY 1.023
--- NOTE | 2018-09-17 11:00 | RADIOLOGY REPORT (SQ) ---
EXAM DESCRIPTION: U/S OB TRANSVAG W/DOPPLER COMPLETED DATE/TIME: 09/17/2018 10:29 am REASON FOR STUDY: preg, bleeding, pelvic pain COMPARISON: None. TECHNIQUE: Transvaginal static and realtime grayscale images acquired of the pelvis. Additional aleksander cted spectral and color Doppler images recorded. All images stored on PACs. bHCG: Not available. CLINICAL DATES: 9 weeks LIMITATIONS: None. FINDINGS: FETUS: Single Living intrauterine . ULTRASOUND EGA: 6 weeks 2 days ULTRASOUND SHINE: 05/11/2019 EFW: Not applicable less than 20 weeks. CRL: 5 mm FHR: None detected. SURVEY: No visualized anomalies. AMNIOTIC FLUID: Adequate amount. PLACENTA: Not yet developed due to early gestation. SUBCHORIONIC BLEED: No. SIZE OF BLEED: Not applicable. UTERUS: No masses. No anomalies. CERVICAL LENGTH: 3.9 cm. Closed. RIGHT ADNEXA: Normal ovary with normal vascular flow. No adnexal free fluid. Corpus Luteum measuring 1.7 cm. LEFT ADNEXA: Normal ovary with normal vascular flow. No adnexal free fluid. No adnexal masses. FREE FLUID: None. OTHER: No other significant finding. IMPRESSION: without cardiac activity. EGA 6 weeks 2 days. Trimester of : First - 0 to 13 weeks. TECHNICAL DOCUMENTATION: JOB ID: [id number] [employer]- All Rights Reserved rev-10/28 Reading location - IP/workstation name: [email or web address]
[2018-09-17 11:02] LABS: T.VAGINALIS (WET MOUNT) NO TRICHOMONAS SEEN; WBCS (WET MOUNT) FEW WBCS SEEN; YEAST (WET MOUNT) NO YEAST SEEN
[2018-09-17 11:03] LABS: BACTERIA (WET MOUNT) 4+ BACTERIA SEEN; EPITHELIALS (WET MOUNT) 3+ EPITHELIALS SEEN
--- NOTE | 2018-09-17 12:08 | ER Document Report ---
ED GI/ - General Chief Complaint: Pelvic Pain Stated Complaint: PELVIC PAIN/CRAMPING Time Seen by Provider: 09/17/18 09:31 Primary Care Provider: BRYAN OLIVIA DO [ACTIVE STAFF] - Follow up tomorrow Notes: Patient is complaining of pelvic and abdominal pains. Started this morning. She is , her last menstrual cycle was July 13 and she has had a positive test at a local clinic. This is her sixth and she has 4 children and has had one miscarriage. Patient has been nauseated. Not vomiting. No UTI symptoms. No fevers. Not having any vaginal bleeding. Has not had any abdominal surgeries. Blood type is O+ from review of patient's past records. TRAVEL OUTSIDE OF THE [place] IN LAST 30 DAYS: No - Related Data Allergies/Adverse Reactions: No Known Allergies Allergy (Verified 07/12/17 12:02) Past Medical History - Social History Smoking Status: Never Smoker Chew tobacco use (# tins/day): No Frequency of alcohol use: None Drug Abuse: None Family History: Arthritis, Hypertension, Malignancy, Other - copd and asthma Patient has suicidal ideation: No Patient has homicidal ideation: No Pulmonary Medical History: Reports: Hx Bronchitis - 2013 Renal/ Medical History: Reports: Hx Ovarian Cysts Past Surgical History: Reports: Hx Gynecologic Surgery - colposcopy - Immunizations Immunizations up to date: Yes Hx Diphtheria, Pertussis, Tetanus Vaccination: Yes - 2010 Review of Systems - Review of Systems Notes: REVIEW OF SYSTEMS: CONSTITUTIONAL : Denies fever. EENT: Denies eye, ear, nose or mouth or throat pain or other symptoms. CARDIOVASCULAR: Denies chest pain. RESPIRATORY: Denies cough, chest congestion, or shortness of breath. GASTROINTESTINAL: See HPI. GENITOURINARY: Denies difficulty or painful urinating, urinary frequency, blood in urine. MUSCULOSKELETAL: Denies back or neck pain. Denies joint pain or swelling. SKIN: Denies rash or skin lesions. NEUROLOGICAL: Denies LOC or altered mental status. Denies headache. Denies sensory loss or motor deficits. ALL OTHER SYSTEMS REVIEWED AND NEGATIVE. Physical Exam - Vital signs Vitals: Temp Pulse Resp BP Pulse Ox 98.1 F 71 16 127/72 H 99 09/17/18 09:15 09/17/18 09:15 09/17/18 09:15 09/17/18 09:15 09/17/18 09:15 Interpretation: Normal Notes: PHYSICAL EXAMINATION: GENERAL: Well-appearing, in no acute distress. HEAD: Atraumatic, normocephalic. EYES: Pupils equal round and reactive to light, extraocular movements intact. ENT: oropharynx clear without exudates. Moist mucous membranes. NECK: Normal range of motion, supple. LUNGS: Breath sounds clear and equal bilaterally. HEART: Regular rate and rhythm without murmurs. ABDOMEN: Tender lower portion of the abdomen, but not localized anywhere. No guarding or rebound. No masses. BACK: No tenderness throughout entire back. EXTREMITIES: Normal range of motion without pain. NEUROLOGICAL: Normal speech, normal gait. Normal sensory, motor, and reflex exams. Awake, alert, and oriented x3. Cranial nerves normal. PSYCH: Normal mood, normal affect. SKIN: Warm, dry, no rashes. - Genitourinary External exam: Normal Speculum exam: Cervix closed. No: Cervix open, Vaginal discharge, Products of conception, Vaginal lacerations Vaginal bleeding: None Bimanuel exam: Cervical motion tender. No: Adnexal mass, Adnexal tenderness Course - Vital Signs Vital signs: Temp Pulse Resp BP Pulse Ox 98 F 73 16 119/81 100 09/17/18 12:16 09/17/18 12:16 09/17/18 12:16 09/17/18 12:16 09/17/18 12:16 - Laboratory Result Diagrams: 09/17/18 09:50 Laboratory results interpreted by me: 09/17/18 09/17/18 09/17/18 09:50 09:50 09:50 RDW 14.2 H Lymphocytes % 45.5 H Beta HCG, Quant 1207.90 H Urine Urobilinogen 4.0 H Discharge - Discharge Clinical Impression: demise, Miscarriage Condition: Stable Disposition: HOME, SELF-CARE Additional Instructions: Miscarriage Impending You have been evaluated for a possible miscarriage. At this time, it appears that the fetus has stopped growing. A miscarriage occurs when the fetus is abnormal. There is no medicine or treatment to prevent it. If bleeding is not severe, and if your pain can be controlled with medicine, you could complete the miscarriage at home. If that's not practical, or if the miscarriage doesn't progress spontaneously, we will arrange for a D&C procedure. You should rest in bed. Do not douche or have sex for at least a week, or until OK'd by the doctor. If you believe you've passed the fetus, collect it in a zip-lock plastic bag. Be sure to follow up with your doctor. Call the doctor or return for re- examination if there is an increase in bleeding or cramping, extreme weakness, fainting, fever, or passage of tissue. Follow-up with MARKETING ACCOUNT MANAGER tomorrow. Their contact information is provided. Call their office at 8 AM. Return if you have severe pain uncontrolled by the pain medication we have prescribed or if you have extremely heavy bleeding with clots. FOLLOW-UP CARE: If you have been referred to a physician for follow-up care, call the physicians office for an appointment as you were instructed or within the next two days. If you experience worsening or a significant change in your symptoms, notify the physician immediately or return to the Emergency Department at any time for re-evaluation. Prescriptions: Oxycodone HCl/Acetaminophen [Percocet 5-325 mg Tablet] 1 - 2 tab PO Q4H PRN #15 tablet PRN Reason: Forms: Return to Work Referrals: BRYAN OLIVIA DO [ACTIVE STAFF] - Follow up tomorrow
[2018-09-17 12:18] VITALS: BP 119/81
[2018-09-17 12:28] LABS: CHLAM PCR NOT DETECTED (NOT DETECT); GON PCR NOT DETECTED (NOT DETECT)
== END 2018-09-17 12:16 | disposition home or self-care (01) ==
LOC: ER 08:55
DX: O03.9 Complete or unspecified spontaneous abortion without complication (principal); R10.2 Pelvic and perineal pain
CPT/HCPCS: 99284; 36415; 87086; 87210; 84702; 85025; 81001; 87491; 87591; 76817; 93976; S0119

== ENCOUNTER 2018-09-21 01:13 | Emergency (ER) | payer SELFPAY ==
[2018-09-21] MEDS ORDERED: OXYCODONE-ACETAMINOPHEN 5-325 MG TABLET PO ONE (01:33)
[2018-09-21] MEDS ORDERED: ONDANSETRON 4 MG TAB.RAPDIS PO ONE (01:33)
--- NOTE | 2018-09-21 01:46 | ER Document Report ---
ED Medical Screen (RME) - General Chief Complaint: Lower Abdominal Pain Stated Complaint: LOWER ABDOMINAL PAIN Time Seen by Provider: 09/21/18 01:25 TRAVEL OUTSIDE OF THE [place] IN LAST 30 DAYS: No - HPI Notes: 09/21/18 01:42 Patient is a 32-year-old female who presents to the emergency department with lower abdominal pain that started around 8 PM tonight. Patient reports that the pain is cramping that wraps around into the lower back. States she was 6 weeks . Patient was seen in this ER on September 17 and diagnosed with a miscarriage. She [facility] up [facility] on Tuesday. She states that after discussion with provider she was going to attempt to pass the products on her own. No medications were prescribed by OBGYN such as Cytotec. Patient reports that she is having vaginal bleeding, has been through one pad since 8 PM, denies blood clot. Describes the lower abdominal cramping as severe and constant. - Related Data Allergies/Adverse Reactions: No Known Allergies Allergy (Verified 09/21/18 01:15) Past Medical History - Social History Family history: Reviewed & Not Pertinent Pulmonary Medical History: Reports: Hx Bronchitis - 2013 Renal/ Medical History: Reports: Hx Ovarian Cysts. Denies: Hx Peritoneal Dialysis Past Surgical History: Reports: Hx Gynecologic Surgery - colposcopy - Immunizations Immunizations up to date: Yes Hx Diphtheria, Pertussis, Tetanus Vaccination: Yes - 2010 Physical Exam - Vital signs Vitals: Temp Pulse Resp BP Pulse Ox 97.6 F 88 24 H 122/74 100 09/21/18 01:21 09/21/18 01:21 09/21/18 01:21 09/21/18 01:21 09/21/18 01:21 Interpretation: Normal - Abdominal Inspection: Normal Distension: No distension Bowel sounds: Normal Tenderness: Tender - Lower abdominal tenderness Organomegaly: No organomegaly Course - Re-evaluation Re-evalutation: 09/21/18 01:46 I have greeted and performed a rapid initial assessment of this patient. A comprehensive ED assessment and evaluation of the patient, analysis of test results and completion of the medical decision making process will be conducted by additional ED providers. - Vital Signs Vital signs: Temp Pulse Resp BP Pulse Ox 97.6 F 88 24 H 122/74 100 09/21/18 01:21 09/21/18 01:21 09/21/18 01:21 09/21/18 01:21 09/21/18 01:21
[2018-09-21 02:11] LABS: ABSOLUTE EOSINOPHILS # (AUTO) 0.2 10^3/uL (0.0-0.6); ABSOLUTE LYMPHOCYTES (AUTO) 3.5 10^3/uL (0.5-4.7); ABSOLUTE MONOCYTES (AUTO) 0.5 10^3/uL (0.1-1.4); ABSOLUTE NEUT (AUTO) 2.5 10^3/uL (1.7-8.2); BASOPHILS % (AUTO) 0.4 % (0-2); EOSINOPHILS % (AUTO) 3.4 % (0-6); HEMATOCRIT 38.4 % (36.0-47.0); HEMOGLOBIN 13.1 g/dL (12.0-15.5); LYMPHOCYTES % (AUTO) 51.7 % (13-45); MEAN CORPUSCULAR HEMOGLOBIN 28.2 pg (27.0-33.4); MEAN CORPUSCULAR VOLUME 83 fl (80-97); MONOCYTES % (AUTO) 7.2 % (3-13); PLATELET COUNT 247 10^3/uL (150-450); RED BLOOD COUNT 4.63 10^6/uL (3.72-5.28); RED CELL DISTRIBUTION WIDTH 14.5 % (11.5-14.0); SEGMENTED NEUTROPHILS % (AUTO) 37.3 % (42-78); TOTAL CELLS COUNTED % (AUTO) 100 %; WHITE BLOOD COUNT 6.8 10^3/uL (4.0-10.5)
[2018-09-21] MEDS ORDERED: HYDROMORPHONE HCL INJ/PF 2 MG/ML AMPULE IV ONE (04:08)
[2018-09-21] MEDS ORDERED: NORMAL SALINE 1000 ML 1,000 ML IV ONE (04:08)
--- NOTE | 2018-09-21 04:35 | ER Document Report ---
ED GI/ - General Chief Complaint: Lower Abdominal Pain Stated Complaint: LOWER ABDOMINAL PAIN Time Seen by Provider: 09/21/18 01:25 Primary Care Provider: MARTINA AGUILAR MD [ACTIVE STAFF] - Follow up tomorrow Notes: Patient is a 32-year-old female, and diagnosed with a miscarriage on 09/17/2018 by ultrasound at this department. She comes to the emergency department for chief complaint of severe cramping and some vaginal bleeding earlier today. She denies vomiting, fever, dizziness, passing out. Previous mi scarriage was also in the first trimester, patient states it was not this bad. Patient was not able to take her Percocet pain medication provided because she states when she takes it she gets nauseated, she states she did not take a single dose. She denies injury. She denies any other complaints. Mother at bedside. TRAVEL OUTSIDE OF THE [place] IN LAST 30 DAYS: No - Related Data Allergies/Adverse Reactions: No Known Allergies Allergy (Verified 09/21/18 01:15) Past Medical History - General Information source: Patient - Social History Smoking Status: Never Smoker Frequency of alcohol use: None Drug Abuse: None Lives with: Family Family History: Arthritis, Hypertension, Malignancy, Other - copd and asthma Pulmonary Medical History: Reports: Hx Bronchitis - 2013 Renal/ Medical History: Reports: Hx Ovarian Cysts. Denies: Hx Peritoneal Dialysis Past Surgical History: Reports: Hx Gynecologic Surgery - colposcopy - Immunizations Immunizations up to date: Yes Hx Diphtheria, Pertussis, Tetanus Vaccination: Yes - 2010 Review of Systems - Review of Systems Constitutional: No symptoms reported EENT: No symptoms reported Cardiovascular: No symptoms reported Respiratory: No symptoms reported Gastrointestinal: See HPI Genitourinary: No symptoms reported Female Genitourinary: See HPI Musculoskeletal: No symptoms reported Skin: No symptoms reported Hematologic/Lymphatic: No symptoms reported Neurological/Psychological: No symptoms reported Physical Exam - Vital signs Vitals: Temp Pulse Resp BP Pulse Ox 97.6 F 88 24 H 122/74 100 09/21/18 01:21 09/21/18 01:21 09/21/18 01:21 09/21/18 01:21 09/21/18 01:21 - Notes Notes: GENERAL: Anxious, appears uncomfortable, restless HEAD: Normocephalic, atraumatic. EYES: Pupils equal, round, and reactive to light. Extraocular movements intact. ENT: Oral mucosa moist, tongue midline. Oropharynx unremarkable. Airway patent. Nares patent, no nasal septal hematoma, TM's intact. NECK: Full range of motion. Supple. Trachea midline. LUNGS: Clear to auscultation bilaterally, no wheezes, rales, or rhonchi. No respiratory distress. HEART: Regular rate and rhythm. No murmur ABDOMEN: There is mild generalized lower abdominal tenderness, upper abdomen benign. No overt rigidity or guarding. GENITOURINARY: No current bleeding, discharge, or abnormality noted. Cervix does not appear open. Exam performed with Amina RN at bedside. EXTREMITIES: Moves all 4 extremities spontaneously. No edema, normal radial and dorsalis pedis pulses bilaterally. No cyanosis. BACK: no cervical, thoracic, lumbar midline tenderness. No saddle anesthesia, normal distal neurovascular exam. NEUROLOGICAL: Alert and oriented x3. Normal speech. [cranial nerves II through XII grossly intact]. PSYCH: Normal affect, normal mood. SKIN: Warm, dry, normal turgor. No rashes or lesions noted. Course - Re-evaluation Re-evalutation: Patient states that she was seen by [facility] the day after her ultrasound showing demise, she was offered D&C versus Cytotec as options, decision was made to try to have the miscarriage at home. Patient was very uncomfortable initially, still having some pain after medications in triage, she was given Dilaudid here. Given IV fluids. Afterwards symptoms resolved. On examination she is not currently bleeding, has no discharge. No products of conception noted. CBC unremarkable. HCG is slightly more elevated than previously but not much changed from 4 days ago. After unremarkable pelvic exam, discussed with patient, because of her severe pain initially decision was made to repeat ultrasound to rule out torsion or other problems. Ultrasound without significant change, shows demise. 09/21/18 06:[address] Aguilar, [employer] marketing assistant retail division. Recommends that patient follow-up in the office later today and has the option of either Cytotec or D&C. No additional recommendations at this time. I discussed with patient and mother at length. Patient states that she was unable to fill her Percocet and take it because she was worried she would get nauseated and vomit with it, however she had another tonight with Zofran and had no vomiting or nausea. She requests Zofran for home so she can take her pain medicine and potentially pass this at home, however she also states that she is strongly considering following up in the office today to move this along. Mom states she is very comfortable with this plan as well. She has no current pain and no current bleeding. Stable at time of discharge. - Vital Signs Vital signs: Temp Pulse Resp BP Pulse Ox 97.6 F 94 12 104/57 L 100 09/21/18 05:35 09/21/18 05:35 09/21/18 05:35 09/21/18 05:35 09/21/18 05:35 - Laboratory Result Diagrams: 09/21/18 01:58 Laboratory results interpreted by me: 09/21/18 09/21/18 01:58 01:58 RDW 14.5 H Seg Neutrophils % 37.3 L Lymphocytes % 51.7 H Beta HCG, Quant 1352.00 H Discharge - Discharge Clinical Impression: Miscarriage, demise, Pelvic cramping Condition: Stable Disposition: HOME, SELF-CARE Additional Instructions: Your evaluation is consistent with an impending miscarriage. I spoke with Dr. Aguilar, recommendation is if this is not progressing or is not feasible to do at home please follow-up later today in the office, call before going in. In the office the options of Cytotec and D&C can be proceeded with. You can take the Zofran with your Percocet for pain/cramping. Return if you worsen including severe pain, heavy bleeding with dizziness, passing out, or any other concerning symptoms. Prescriptions: Ondansetron [Zofran Odt 4 mg Tablet] 1 - 2 tab PO Q4H PRN #20 tab.rapdis PRN Reason: For Nausea/Vomiting Forms: Return to Work Referrals: MARTINA AGUILAR MD [ACTIVE STAFF] - Follow up tomorrow
[2018-09-21 05:45] VITALS: BP 104/57
--- NOTE | 2018-09-21 05:57 | RADIOLOGY REPORT (SQ) ---
EXAM DESCRIPTION: US TRANSVAGINAL COMPLETED DATE/TME: 09/21/2018 04:49 CLINICAL HISTORY: 32 years Female, severe pelvic pain COMPARISON: Four days prior. TECHNIQUE: Transvaginal. LIMITATIONS: None. FINDINGS: No cardiac activity. Intrauterine hypoechoic gestational sac and fetus measuring 0.9 cm in crown-rump length. 8 cm uterus. If fetus were viable, crown-rump length would correspond with a gestational age of seven weeks zero days. Moderate free anechoic pelvic fluid. 5.2 x 2.9 x 2.8 cm right ovary with possible 2.2 cm corpus luteal cyst. Left ovary is not visualized. IMPRESSION: demise. Serial laboratory confirmation recommended.
[2018-09-21] MEDS ORDERED: ONDANSETRON ODT 4 MG TAB (6 TAB/ER DISP) PO PRN (06:28)
== END 2018-09-21 06:50 | disposition home or self-care (01) ==
LOC: ER 01:13
DX: O03.9 Complete or unspecified spontaneous abortion without complication (principal); R10.30 Lower abdominal pain, unspecified
CPT/HCPCS: 99284; 96361; 96374; 86900; 86901; 36415; 86850; 84702; 85025; 76817; 93976; S0119; J1170; J7030

== ENCOUNTER 2018-12-27 17:40 | Emergency (ER) | payer SELFPAY ==
[2018-12-27] MEDS ORDERED: HYDROCODONE/ACETAMINOPHEN 5-325 MG TABLET PO ONE (19:16)
--- NOTE | 2018-12-27 19:41 | ER Document Report ---
ED Medical Screen (RME) - General Chief Complaint: Vaginal Bleeding Stated Complaint: VAGINAL BLEEDING Time Seen by Provider: 12/27/18 19:07 Mode of Arrival: Ambulatory Information source: Patient Notes: Patient is a 33-year-old female G6, P4 presenting to the emergency department chief complaint of vaginal bleeding. Patient reports she had a positive home test recently and has been bleeding over the last 3 days. She also reports low abdominal cramping. She denies passage of any clots. Exam: Patient alert, oriented and answering all questions appropriately, no acute distress noted. Vital signs were reviewed and were within normal limits. Abdomen soft, mild tenderness to the low abdomen. I have greeted and performed a rapid initial assessment of this patient. A comprehensive ED assessment and evaluation of the patient, analysis of test results and completion of the medical decision making process will be conducted by additional ED providers. I have specifically instructed the patient or family members with the patient to immediately return to any nursing staff should anything change in the patient's condition or with their chief complaint. This medical record was dictated with voice recognizing software. There may be grammatical, syntax errors that are unintended. TRAVEL OUTSIDE OF THE [place] IN LAST 30 DAYS: No - Related Data Allergies/Adverse Reactions: No Known Allergies Allergy (Verified 12/27/18 17:46) Past Medical History - Social History Frequency of alcohol use: None Drug Abuse: None Family history: Reviewed & Not Pertinent Pulmonary Medical History: Reports: Hx Bronchitis - 2013 Renal/ Medical History: Reports: Hx Ovarian Cysts. Denies: Hx Peritoneal Dialysis Past Surgical History: Reports: Hx Gynecologic Surgery - colposcopy - Immunizations Immunizations up to date: Yes Hx Diphtheria, Pertussis, Tetanus Vaccination: Yes - 2010 Physical Exam - Vital signs Vitals: Temp Pulse Resp BP Pulse Ox 98.4 F 71 18 110/61 97 12/27/18 17:51 12/27/18 17:51 12/27/18 17:51 12/27/18 17:51 12/27/18 17:51 Course - Vital Signs Vital signs: Temp Pulse Resp BP Pulse Ox 98.4 F 71 18 110/61 97 12/27/18 17:51 12/27/18 17:51 12/27/18 17:51 12/27/18 17:51 12/27/18 17:51
[2018-12-27 20:06] LABS: ABSOLUTE EOSINOPHILS # (AUTO) 0.2 10^3/uL (0.0-0.6); ABSOLUTE LYMPHOCYTES (AUTO) 3.5 10^3/uL (0.5-4.7); ABSOLUTE MONOCYTES (AUTO) 0.6 10^3/uL (0.1-1.4); ABSOLUTE NEUT (AUTO) 2.8 10^3/uL (1.7-8.2); BASOPHILS % (AUTO) 0.6 % (0-2); HEMATOCRIT 39.7 % (36.0-47.0); LYMPHOCYTES % (AUTO) 49.1 % (13-45); MEAN CORPUSCULAR HEMOGLOBIN 27.5 pg (27.0-33.4); MEAN CORPUSCULAR HGB CONC 32.7 g/dL (32.0-36.0); MEAN CORPUSCULAR VOLUME 84 fl (80-97); MONOCYTES % (AUTO) 8.5 % (3-13); PLATELET COUNT 236 10^3/uL (150-450); RED BLOOD COUNT 4.72 10^6/uL (3.72-5.28); RED CELL DISTRIBUTION WIDTH 14.2 % (11.5-14.0); SEGMENTED NEUTROPHILS % (AUTO) 38.8 % (42-78); TOTAL CELLS COUNTED % (AUTO) 100 %; WHITE BLOOD COUNT 7.1 10^3/uL (4.0-10.5)
[2018-12-27 21:01] LABS: APPEARANCE,URINE CLEAR; BILIRUBIN,URINE NEGATIVE (NEGATIVE); COLOR,URINE YELLOW; GLUCOSE, URINE NEGATIVE (NEGATIVE); KETONES,URINE NEGATIVE (NEGATIVE); LEUKOCYTE ESTERASE,URINE NEGATIVE (NEGATIVE); NITRITE,URINE NEGATIVE (NEGATIVE); PROTEIN,URINE NEGATIVE (NEGATIVE); URINE SPECIFIC GRAVITY 1.026
--- NOTE | 2018-12-27 21:07 | RADIOLOGY REPORT (SQ) ---
EXAM DESCRIPTION: US TRANSVAGINAL COMPLETED DATE/TME: 12/27/2018 19:14 CLINICAL HISTORY: 33 years, Female, +preg, vag bleed COMPARISON: No recent studies available. TECHNIQUE: Examination performed with transvaginal approach. FINDINGS: Uterus measures 77 x 59 x 50 mm. Endometrium not well delineated on these images and no measurement is available. There is a mildly eccentric fluid structure close to the center of the uterus that measures an average diameter of 14 mm. Not clear if this is a gestational sac or a pseudosac. By size this would correspond to gestational age of six weeks and two days. No pole or yolk sac is identified. There is ill-defined myometrial prominence projecting on the images provided anterior to the fluid collection. See images 4 and 18 of 49 images. Significance not clear. Fibroid? Adenomyosis would be less likely at this age. Both ovaries demonstrate enhancement. The right ovary measures 24 x 20 x 21 mm. The left ovary measures 34 x 15 x 23 mm. Mildly complex 13 x 12 x 11 mm structure in the right ovary is possibly a collapsed cyst. Not felt to be significant. There is no obvious free fluid. IMPRESSION: 1. There is no evidence for a normal /intrauterine sac. A fluid containing structure inside the uterus is more likely not a sac. In any case, there is no demonstration of yolk SAC or pole. 2. Nonspecific area of asymmetric thickening in the uterus adjacent to the fluid collection. Fibroid? Adenomyosis? Very thick endometrium? 3. No suspicious adnexal abnormality.
--- NOTE | 2018-12-28 02:15 | ER Document Report ---
ED General - General Chief Complaint: Vaginal Bleeding Stated Complaint: VAGINAL BLEEDING Time Seen by Provider: 12/27/18 19:07 Primary Care Provider: [facility] [Provider Group] - Follow [facility] tomorrow [facility] [Outside] - Follow up tomorrow Mode of Arrival: Ambulatory Notes: Patient is a 33 year old female G6, P4 that presents to the emergency department for chief complaint of vaginal bleeding. Patient states she first took a test that was positive 1-week ago, and started having a small amount of vaginal bleeding yesterday in the morning, and had one other episode while she is in the emergency department waiting to be seen. She has also had some pelvic cramping bilaterally, describes as a 3 out of 10 at this time. She denies having any dysuria, hematuria, chest pain, shortness of breath, difficulty breathing, lightheadedness or dizziness. She had some mild nausea but no vomiting. She did have a miscarriage back in September of this year, she states that in November she had a colposcopy, on the , at that time she had a test that was negative. Past Medical History: Denies chronic medical conditions Past Surgical History: Colposcopy Social History: Denies tobacco, alcohol or drug use. Family History: Reviewed and noncontributory for presenting illness Allergies: Reviewed, see documented allergy list. REVIEW OF SYSTEMS: Other than noted above, the 12 point review of systems was reviewed with the patient and were negative, all pertinent findings are included in the HPI. PHYSICAL EXAMINATION: Vital signs reviewed, nursing noted reviewed. GENERAL: Well-appearing, well-nourished and in no acute distress. HEAD: Atraumatic, normocephalic. EYES: Eyes appear normal, extraocular movements intact, sclera anicteric, co njunctiva are normal. ENT: nares patent, oropharynx clear without exudates. Moist mucous membranes. NECK: Normal range of motion, supple without lymphadenopathy LUNGS: Breath sounds clear to auscultation bilaterally and equal. No wheezes rales or rhonchi. HEART: Regular rate and rhythm without murmurs ABDOMEN: Soft, nontender, normoactive bowel sounds. No rebound, guarding, or rigidity. No masses appreciated. EXTREMITIES: Nontender, good range of motion, no pitting or edema. NEUROLOGICAL: No focal neurological deficits. Moves all extremities spontaneously Motor and sensory grossly intact on exam. PSYCH: Normal mood, normal affect. SKIN: Warm, Dry, normal turgor, no rashes or lesions noted on exposed skin TRAVEL OUTSIDE OF THE [place] IN LAST 30 DAYS: No - Related Data Allergies/Adverse Reactions: No Known Allergies Allergy (Verified 12/27/18 17:46) Past Medical History - General Information source: Patient - Social History Smoking Status: Never Smoker Frequency of alcohol use: None Drug Abuse: None Family History: Arthritis, Hypertension, Malignancy, Other - copd and asthma Patient has suicidal ideation: No Patient has homicidal ideation: No Pulmonary Medical History: Reports: Hx Bronchitis - 2013 Renal/ Medical History: Reports: Hx Ovarian Cysts. Denies: Hx Peritoneal Dialysis Past Surgical History: Reports: Hx Gynecologic Surgery - colposcopy - Immunizations Immunizations up to date: Yes Hx Diphtheria, Pertussis, Tetanus Vaccination: Yes - 2010 Physical Exam - Vital signs Vitals: Temp Pulse Resp BP Pulse Ox 98.4 F 71 18 110/61 97 12/27/18 17:51 12/27/18 17:51 12/27/18 17:51 12/27/18 17:51 12/27/18 17:51 Course - Re-evaluation Re-evalutation: Patient seen and examined vital signs reviewed. Laboratory data and/or imaging were ordered as appropriate for the patient's presenting symptoms and complaint, with consideration of any critical or life threatening conditions that may be associated with their obtained history and exam as noted above. Patient was treated with [place] as ordered in triage Results were reviewed when available and demonstrated positive hCG, with fluid- filled area in the uterus, that radiology did not think was a yolk sac, or definite intrauterine The patient was re-evaluated and was stable Evaluation was most consistent with positive , and possible miscarriage versus very early , as her first of her last menstrual period is unclear, and her only positive test was from 1 week ago. I recommend repeating hCG in 48 hours, and [facility] Results were discussed with the patient at this point, after careful consideration I feel that that patient can be discharged from the emergency department, the patient was educated treatments and reasons to return to the emergency department based on their presumed diagnosis as noted above, they were advised to followup with a primary care physician in 2-3 days. Patient was agreeable to plan of care. *Note is created using voice recognition software and may contain spelling, syntax or grammatical errors. Laboratory 12/27/18 12/27/18 12/27/18 19:31 19:31 19:40 WBC 7.1 RBC 4.72 Hgb 13.0 Hct 39.7 MCV 84 MCH 27.5 MCHC 32.7 RDW 14.2 H Plt Count 236 Seg Neutrophils % 38.8 L Lymphocytes % 49.1 H Monocytes % 8.5 Eosinophils % 3.0 Basophils % 0.6 Absolute Neutrophils 2.8 Absolute Lymphocytes 3.5 Absolute Monocytes 0.6 Absolute Eosinophils 0.2 Absolute Basophils 0.0 Beta HCG, Quant 157.52 H Total Beta HCG POSITIVE Urine Color YELLOW Urine Appearance CLEAR Urine pH 7.0 Ur Specific [place] 1.026 Urine Protein NEGATIVE Urine Glucose (UA) NEGATIVE Urine Ketones NEGATIVE Urine Blood NEGATIVE Urine Nitrite NEGATIVE Urine Bilirubin NEGATIVE Urine Urobilinogen 4.0 H Ur Leukocyte Esterase NEGATIVE Urine WBC (Auto) 1 Urine RBC (Auto) 0 Squamous Epi Cells Auto 1 Urine Mucus (Auto) RARE Urine Ascorbic Acid NEGATIVE Blood Type Rhogam Indicated 12/27/18 21:40 WBC RBC Hgb Hct MCV MCH MCHC RDW Plt Count Seg Neutrophils % Lymphocytes % Monocytes % Eosinophils % Basophils % Absolute Neutrophils Absolute Lymphocytes Absolute Monocytes Absolute Eosinophils Absolute Basophils Beta HCG, Quant Total Beta HCG Urine Color Urine Appearance Urine pH Ur Specific [place] Urine Protein Urine Glucose (UA) Urine Ketones Urine Blood Urine Nitrite Urine Bilirubin Urine Urobilinogen Ur Leukocyte Esterase Urine WBC (Auto) Urine RBC (Auto) Squamous Epi Cells Auto Urine Mucus (Auto) Urine Ascorbic Acid Blood Type O POSITIVE Rhogam Indicated RHOGAM NOT INDICATED Obstetrics Ultrasound 12/27/18 19:14 IMPRESSION: 1. There is no evidence for a normal /intrauterine sac. A fluid containing structure inside the uterus is more likely not a sac. In any case, there is no demonstration of yolk SAC or pole. 2. Nonspecific area of asymmetric thickening in the uterus adjacent to the fluid collection. Fibroid? Adenomyosis? Very thick endometrium? 3. No suspicious adnexal abnormality. - Vital Signs Vital signs: Temp Pulse Resp BP Pulse Ox 98.4 F 71 18 110/61 97 12/27/18 17:51 12/27/18 17:51 12/27/18 17:51 12/27/18 17:51 12/27/18 17:51 - Laboratory Result Diagrams: 12/27/18 19:31 Laboratory results interpreted by me: 12/27/18 12/27/18 12/27/18 19:31 19:31 19:40 RDW 14.2 H Seg Neutrophils % 38.8 L Lymphocytes % 49.1 H Beta HCG, Quant 157.52 H Urine Urobilinogen 4.0 H Discharge - Discharge Clinical Impression: Vaginal bleeding affecting early Condition: Stable Disposition: HOME, SELF-CARE Instructions: Bleeding During Early ([facility]) Additional Instructions: Please follow-up with the health department or with the women's health group, to have a repeat quantitative hCG testing, this should be performed sometime on Tuesday. If you have any worsening of your symptoms, develop fever, or significant bleeding where you have to use more than 1 female pad per hour, to return to the emergency department sooner. Referrals: [facility] [Provider Group] - Follow up tomorrow [facility] [Outside] - Follow up tomorrow
[2018-12-28 02:49] VITALS: BP 123/58
== END 2018-12-28 02:47 | disposition home or self-care (01) ==
LOC: ER 17:40
DX: O20.9 Hemorrhage in early pregnancy, unspecified (principal)
CPT/HCPCS: 36415; 76817; 81001; 84702; 85025; 86900; 86901; 99284

== ENCOUNTER 2019-02-11 11:07 | Emergency (ER) | payer SELFPAY ==
[2019-02-11 11:18] VITALS: BP 142/66
--- NOTE | 2019-02-11 12:14 | ER Document Report ---
ED Medical Screen (RME) - General Chief Complaint: Vaginal Bleeding Stated Complaint: POSSIBLE MISCARRIAGE Time Seen by Provider: 02/11/19 12:06 Notes: Patient is a 33-year-old female G7, P4 who presents to the emergency department with a chief complaint of vaginal bleeding. Patient states her last menstrual cycle was on December 28 and estimates being about 6 weeks . Patient states she has had positive home test but has not seen her LCSW yet. Patient states about 1 week ago she started having vaginal bleeding which did subside but then woke up this morning today with vaginal spotting. Patient states it is not like a menstrual cycle. Patient states she has had 2 miscarriages in the past 6 months. Patient also reports a lot of pressure around the rectum. Patient reports her last bowel movement was 2 days ago which is not abnormal for her. Patient denies issues with constipation. Patient does report urinary frequency. Patient reports nausea. Patient denies vaginal discharge. TRAVEL OUTSIDE OF THE [place] IN LAST 30 DAYS: No - Related Data Allergies/Adverse Reactions: No Known Allergies Allergy (Verified 02/11/19 11:08) Past Medical History - Social History Family history: Reviewed & Not Pertinent Pulmonary Medical History: Reports: Hx Bronchitis - 2013 Renal/ Medical History: Reports: Hx Ovarian Cysts. Denies: Hx Peritoneal Dialysis Past Surgical History: Reports: Hx Gynecologic Surgery - colposcopy - Immunizations Immunizations up to date: Yes Hx Diphtheria, Pertussis, Tetanus Vaccination: Yes - 2010 Physical Exam - Vital signs Vitals: Temp Pulse Resp BP Pulse Ox 98.4 F 87 12 142/66 H 99 02/11/19 11:17 02/11/19 11:17 02/11/19 11:17 02/11/19 11:17 02/11/19 11:17 - Abdominal Inspection: Normal Distension: No distension Bowel sounds: Normal Tenderness: Nontender Organomegaly: No organomegaly Course - Re-evaluation Re-evalutation: 02/11/19 12:14 I have greeted and performed a rapid initial assessment of this patient. A comprehensive ED assessment and evaluation of the patient, analysis of test results and completion of the medical decision making process will be conducted by additional ED providers. - Vital Signs Vital signs: Temp Pulse Resp BP Pulse Ox 98.4 F 87 12 142/66 H 99 02/11/19 11:17 02/11/19 11:17 02/11/19 11:17 02/11/19 11:17 02/11/19 11:17
[2019-02-11 12:40] LABS: ABSOLUTE EOSINOPHILS # (AUTO) 0.2 10^3/uL (0.0-0.6); ABSOLUTE LYMPHOCYTES (AUTO) 2.2 10^3/uL (0.5-4.7); ABSOLUTE MONOCYTES (AUTO) 0.5 10^3/uL (0.1-1.4); ABSOLUTE NEUT (AUTO) 3.5 10^3/uL (1.7-8.2); BASOPHILS % (AUTO) 0.6 % (0-2); EOSINOPHILS % (AUTO) 2.5 % (0-6); HEMATOCRIT 40.3 % (36.0-47.0); HEMOGLOBIN 13.5 g/dL (12.0-15.5); LYMPHOCYTES % (AUTO) 34.7 % (13-45); MEAN CORPUSCULAR HEMOGLOBIN 27.5 pg (27.0-33.4); MEAN CORPUSCULAR HGB CONC 33.5 g/dL (32.0-36.0); MEAN CORPUSCULAR VOLUME 82 fl (80-97); MONOCYTES % (AUTO) 7.6 % (3-13); PLATELET COUNT 243 10^3/uL (150-450); RED BLOOD COUNT 4.91 10^6/uL (3.72-5.28); RED CELL DISTRIBUTION WIDTH 14.1 % (11.5-14.0); SEGMENTED NEUTROPHILS % (AUTO) 54.6 % (42-78); TOTAL CELLS COUNTED % (AUTO) 100 %; WHITE BLOOD COUNT 6.4 10^3/uL (4.0-10.5)
[2019-02-11 12:52] LABS: ALBUMIN 4.1 g/dL (3.5-5.0); ALKALINE PHOSPHATASE 62 U/L (38-126); ANION GAP 8 (5-19); ASPARTATE AMINO TRANSFERASE 22 U/L (14-36); BILIRUBIN,DIRECT 0.1 mg/dL (0.0-0.4); BILIRUBIN,TOTAL 0.6 mg/dL (0.2-1.3); BLOOD UREA NITROGEN 7 mg/dL (7-20); CALCIUM 8.8 mg/dL (8.4-10.2); CARBON DIOXIDE 25 mmol/L (22-30); CHLORIDE 104 mmol/L (98-107); GLUCOSE 88 mg/dL (75-110); POTASSIUM 3.7 mmol/L (3.6-5.0); TOTAL PROTEIN 7.1 g/dL (6.3-8.2)
[2019-02-11 13:08] LABS: APPEARANCE,URINE SLIGHTLY-CLOUDY; BILIRUBIN,URINE NEGATIVE (NEGATIVE); COLOR,URINE YELLOW; GLUCOSE, URINE NEGATIVE (NEGATIVE); KETONES,URINE NEGATIVE (NEGATIVE); LEUKOCYTE ESTERASE,URINE MODERATE (NEGATIVE); NITRITE,URINE NEGATIVE (NEGATIVE); PROTEIN,URINE NEGATIVE (NEGATIVE)
--- NOTE | 2019-02-11 13:39 | RADIOLOGY REPORT (SQ) ---
EXAM DESCRIPTION: U/S OB TRANSVAG W/DOPPLER COMPLETED DATE/TIME: 02/11/2019 1:27 pm REASON FOR STUDY: + preg test at home, vaginal bleeding COMPARISON: None. TECHNIQUE: Transvaginal static and realtime grayscale images acquired of the pelvis. Additional aleksander cted spectral and color Doppler images recorded. All images stored on PACs. CLINICAL AGE: 6 week 3 day. BHC,541. LIMITATIONS: None. FINDINGS: UTERUS: No visualized intrauterine . Hypoechoic fluid collection in the endometr ial cavity at the fundus. RIGHT ADNEXA: Normal ovary with normal vascular flow. No adnexal free fluid. Hypoechoic fluid collection measuring 1.6 cm. LEFT ADNEXA: Normal ovary with normal vascular flow. No adnexal free fluid. No adnexal masses. FREE FLUID: None. OTHER: No other significant finding. IMPRESSION: NO VISUALIZED INTRA- OR EXTRAUTERINE . THERE IS A HYPOECHOIC FLUID COLLECTION IN THE ENDOMETRIAL CAVITY AT THE FUNDUS. THIS MAY REPRESENT B LOOD AND/OR AN ABNORMAL GESTATIONAL SAC. HYPOECHOIC AREA IN THE RIGHT OVARY WHICH MAY BE A HEMORRHAG IC CYST. ECTOPIC CANNOT BE EXCLUDED. FOLLOW-UP ULTRASOUND AND SERIAL BHCG LEVELS STRONGLY RECOMMENDED TO ACCURATELY ASSESS STATU S. TECHNICAL DOCUMENTATION: JOB ID: [id number] [employer]- All Rights Reserved Reading location - IP/workstation name: [email or web address]
--- NOTE | 2019-02-11 14:11 | ER Document Report ---
ED General - General Chief Complaint: Vaginal Bleeding Stated Complaint: POSSIBLE MISCARRIAGE Time Seen by Provider: 02/11/19 12:06 Notes: 33-year-old female presents emergency department concerned that she may be having a miscarriage. Patient is a G7, P4 84 states that she had a positive test back at the beginning of January and then she developed some heavy vaginal bleeding approximately a week ago which says since stopped and then she developed spotting again today. Patient states that she has some rectal pain and some back pain as well but no abdominal pain. Patient states that if this is a miscarriage will be her third miscarriage in the past year. Prior to that she had 4 pregnancies without any difficulty. She has not had a recurrent miscarriage work-up. No history of ectopic . TRAVEL OUTSIDE OF THE [place] IN LAST 30 DAYS: No - Related Data Allergies/Adverse Reactions: No Known Allergies Allergy (Verified 02/11/19 11:08) Past Medical History - General Information source: Patient - Social History Smoking Status: Never Smoker Chew tobacco use (# tins/day): No Frequency of alcohol use: None Drug Abuse: None Family History: Arthritis, Hypertension, Malignancy, Other - copd and asthma Patient has suicidal ideation: No Patient has homicidal ideation: No Pulmonary Medical History: Reports: Hx Bronchitis - 2013 Renal/ Medical History: Reports: Hx Ovarian Cysts. Denies: Hx Peritoneal Dialysis Past Surgical History: Reports: Hx Gynecologic Surgery - colposcopy - Immunizations Immunizations up to date: Yes Hx Diphtheria, Pertussis, Tetanus Vaccination: Yes - 2010 Review of Systems - Review of Systems Constitutional: No symptoms reported Gastrointestinal: Nausea. denies: Abdominal pain Genitourinary: No symptoms reported Female Genitourinary: See HPI Musculoskeletal: See HPI, Back pain -: Yes All other systems reviewed and negative Physical Exam - Vital signs Vitals: Temp Pulse Resp BP Pulse Ox 98.4 F 87 12 142/66 H 99 02/11/19 11:17 02/11/19 11:17 02/11/19 11:17 02/11/19 11:17 02/11/19 11:17 Interpretation: Hypertensive - Notes Notes: GENERAL: Alert, interacts well. No acute distress. HEAD: Normocephalic, atraumatic EYES: Pupils equal, round and reactive to light, extraocular movements intact. ENT: Oral mucosa moist, tongue midline. NECK: Full range of motion, supple, trachea midline. LUNGS: Clear to auscultation bilaterally, no wheezes, rales or rhonchi, no respiratory distress. HEART: Regular rate and rhythm, no murmurs, gallops, rubs. ABDOMEN: Soft, nontender, nondistended, bowel sounds present in all 4 quadrants. EXTREMITIES: Moves all 4 extremities spontaneously, no edema, radial and dorsalis pedis pulses 2/4 bilaterally. No cyanosis. NEUROLOGICAL: Alert and oriented x3, normal speech. PSYCH: Normal mood, normal affect, appropriately tearful when discussing miscarriage. SKIN: Warm, Dry, normal turgor, no rashes or lesions noted. Course - Re-evaluation Re-evalutation: 02/11/19 14:13 CBC unremarkable, CMP grossly unremarkable, quantitative beta-hCG is 2541, not nearly as high as I would expect given her positive test reported in the computer on December 27, 2018. Urinalysis appears contaminated with large blood and moderate leukocyte esterase, 10 squamous epithelial cells. Transvaginal ultrasound reveals no visualized intra-or extrauterine , hypoechoic fluid collection in the endometrial cavity at the fundus which may represent blood or an abnormal gestational sac. Hypoechoic area in the right ovary which may be a hemorrhagic cyst. Ectopic cannot be excluded. Discussed with patient that given her relatively low quantitative hCG levels for at least 8 weeks gestation and the lack of a visualized intrauterine I do to suspect miscarriage rather than ectopic however patient will have any quantitative hCG hormone level repeated in 48 to 72 hours to exclude ectopic. Patient will return if her pain worsens before then. - Vital Signs Vital signs: Temp Pulse Resp BP Pulse Ox 98.4 F 87 12 142/66 H 99 02/11/19 11:17 02/11/19 11:17 02/11/19 11:17 02/11/19 11:17 02/11/19 11:17 - Laboratory Result Diagrams: 02/11/19 12:21 02/11/19 12:21 Laboratory results interpreted by me: 02/11/19 02/11/19 02/11/19 11:28 12:21 12:21 RDW 14.1 H Serum HCG, Qual Beta HCG, Quant 2541.70 H Urine Blood LARGE H Urine Urobilinogen 2.0 H Ur Leukocyte Esterase MODERATE H 02/11/19 12:21 RDW Serum HCG, Qual POSITIVE H Beta HCG, Quant Urine Blood Urine Urobilinogen Ur Leukocyte Esterase Discharge - Discharge Clinical Impression: Vaginal bleeding affecting early , Suspected miscarriage Condition: Stable Disposition: HOME, SELF-CARE Additional Instructions: I suspect you are having a miscarriage. It is very important that we repeat your test in 48 to 72 hours to see whether your hormone levels are going up or down. If they are continuing to go upward but do not double we will need to talk to [facility] about the possibility of an ectopic/tubal . If your pain worsens before the next 48 to 72 hours please return to the emergency department. You may either have your test performed at her outpatient laboratory or you may register as a patient in the emergency department to have the test repeated. It would likely cost you less to have the test performed at the laboratory. Forms: Follow-Up Laboratory Testing Referrals: [facility] [Provider Group] - Follow up in 3-5 days
== END 2019-02-11 14:25 | disposition home or self-care (01) ==
LOC: ER 11:07
DX: O20.9 Hemorrhage in early pregnancy, unspecified (principal); O26.899 Other specified pregnancy related conditions, unspecified trimester; R11.0 Nausea; O99.619 Diseases of the digestive system complicating pregnancy, unspecified trimester; K62.89 Other specified diseases of anus and rectum; O99.89 Other specified diseases and conditions complicating pregnancy, childbirth and the puerperium; M54.9 Dorsalgia, unspecified; Z3A.00 Weeks of gestation of pregnancy not specified; Z87.59 Personal history of other complications of pregnancy, childbirth and the puerperium; Z87.42 Personal history of other diseases of the female genital tract
CPT/HCPCS: 36415; 76817; 80053; 81001; 84702; 84703; 85025; 93976; 99284

== ENCOUNTER 2019-05-03 12:58 | Emergency (ER) | payer SELFPAY ==
[2019-05-03] MEDS ORDERED: METOCLOPRAMIDE HCL INJ/PF 10 MG/2 ML SDV IV ONE (13:27)
--- NOTE | 2019-05-03 13:28 | ER Document Report ---
ED Medical Screen (RME) - General Chief Complaint: Nausea/Vomiting/Diarrhea Stated Complaint: VOMITTING/SEVERE CRAMPING/DIARRHEA Time Seen by Provider: 05/03/19 13:26 TRAVEL OUTSIDE OF THE [place] IN LAST 30 DAYS: No - HPI Notes: 05/03/19 13:27 Patient is a 33-year-old female with no significant past medical history aside from multiple miscarriages who presents complaining of nausea, vomiting for the past week with diarrhea over the past couple days that has been watery. She has been having intermittent lower abdominal cramping. Patient states that she is urinating normally. No vaginal discharge, odor, or bleeding. Patient denies that she is aware of at this time. Last miscarriage was within the last couple months. Denies drug allergies. No fever, chest pain, shortness of breath. I have treated and performed a rapid initial assessment of this patient. A comprehensive ED assessment and evaluation of the patient, analysis of test results and completion of medical decision making process will be conducted by additional ED providers. PHYSICAL EXAMINATION: GENERAL: Well-appearing, well-nourished and in no acute distress. Answers questions appropriately. - Related Data Allergies/Adverse Reactions: No Known Allergies Allergy (Verified 05/03/19 13:24) Past Medical History - Social History Chew tobacco use (# tins/day): No Frequency of alcohol use: None Family history: Reviewed & Not Pertinent Pulmonary Medical History: Reports: Hx Bronchitis - 2013 Renal/ Medical History: Reports: Hx Ovarian Cysts. Denies: Hx Peritoneal Dialysis Past Surgical History: Reports: Hx Gynecologic Surgery - colposcopy - Immunizations Immunizations up to date: Yes Hx Diphtheria, Pertussis, Tetanus Vaccination: Yes - 2010 Physical Exam - Vital signs Vitals: Temp Pulse Resp BP Pulse Ox 98.1 F 71 18 115/56 L 100 05/03/19 13:06 05/03/19 13:06 05/03/19 13:06 05/03/19 13:06 05/03/19 13:06 Course - Vital Signs Vital signs: Temp Pulse Resp BP Pulse Ox 98.1 F 71 18 115/56 L 100 05/03/19 13:06 05/03/19 13:06 05/03/19 13:06 05/03/19 13:06 05/03/19 13:06
[2019-05-03 14:03] LABS: ABSOLUTE EOSINOPHILS # (AUTO) 0.1 10^3/uL (0.0-0.6); ABSOLUTE LYMPHOCYTES (AUTO) 1.9 10^3/uL (0.5-4.7); ABSOLUTE MONOCYTES (AUTO) 0.5 10^3/uL (0.1-1.4); ABSOLUTE NEUT (AUTO) 1.4 10^3/uL (1.7-8.2); BASOPHILS % (AUTO) 0.3 % (0-2); EOSINOPHILS % (AUTO) 1.9 % (0-6); HEMATOCRIT 38.3 % (36.0-47.0); LYMPHOCYTES % (AUTO) 48.9 % (13-45); MEAN CORPUSCULAR HEMOGLOBIN 28.1 pg (27.0-33.4); MEAN CORPUSCULAR HGB CONC 33.9 g/dL (32.0-36.0); MEAN CORPUSCULAR VOLUME 83 fl (80-97); MONOCYTES % (AUTO) 13.7 % (3-13); PLATELET COUNT 232 10^3/uL (150-450); RED BLOOD COUNT 4.62 10^6/uL (3.72-5.28); RED CELL DISTRIBUTION WIDTH 13.9 % (11.5-14.0); SEGMENTED NEUTROPHILS % (AUTO) 35.2 % (42-78); TOTAL CELLS COUNTED % (AUTO) 100 %
[2019-05-03 14:11] LABS: APPEARANCE,URINE SLIGHTLY-CLOUDY; BILIRUBIN,URINE NEGATIVE (NEGATIVE); COLOR,URINE YELLOW; GLUCOSE, URINE NEGATIVE (NEGATIVE); KETONES,URINE 20 mg/dL (NEGATIVE); PROTEIN,URINE 30 mg/dL (NEGATIVE); UROBILINOGEN,URINE NEGATIVE mg/dL (<2.0)
[2019-05-03 14:42] LABS: ALBUMIN 3.9 g/dL (3.5-5.0); ALKALINE PHOSPHATASE 60 U/L (38-126); ANION GAP 9 (5-19); ASPARTATE AMINO TRANSFERASE 21 U/L (14-36); BILIRUBIN,DIRECT 0.1 mg/dL (0.0-0.4); BILIRUBIN,TOTAL 0.4 mg/dL (0.2-1.3); BLOOD UREA NITROGEN 5 mg/dL (7-20); CALCIUM 8.6 mg/dL (8.4-10.2); CARBON DIOXIDE 25 mmol/L (22-30); CHLORIDE 103 mmol/L (98-107); GLUCOSE 81 mg/dL (75-110); POTASSIUM 3.4 mmol/L (3.6-5.0); TOTAL PROTEIN 7.1 g/dL (6.3-8.2)
[2019-05-03] MEDS: NORMAL SALINE 1000 ML 1,000 ML IV PRN ×2 (15:38→16:39)
--- NOTE | 2019-05-03 17:41 | ER Document Report ---
ED General - General Chief Complaint: Nausea/Vomiting/Diarrhea Stated Complaint: VOMITTING/SEVERE CRAMPING/DIARRHEA Time Seen by Provider: 05/03/19 13:26 Primary Care Provider: JANI MARX CNM [ACTIVE STAFF] - Follow up as needed Notes: 33-year-old G8, P4 female presents for nausea/vomiting for 1 week and diarrhea for 2 days. Patient has associated abdominal cramping. Patient denies any fever, chills, constipation, pelvic pain, vaginal bleeding, vaginal discharge, blood in stool. 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 Patient states she thinks her LMP was March 13. TRAVEL OUTSIDE OF THE [place] IN LAST 30 DAYS: No - Related Data Allergies/Adverse Reactions: No Known Allergies Allergy (Verified 05/03/19 13:24) Past Medical History - Social History Smoking Status: Never Smoker Chew tobacco use (# tins/day): No Frequency of alcohol use: None Family History: Arthritis, Hypertension, Malignancy, Other - copd and asthma Patient has suicidal ideation: No Patient has homicidal ideation: No Pulmonary Medical History: Reports: Hx Bronchitis - 2013 Renal/ Medical History: Reports: Hx Ovarian Cysts. Denies: Hx Peritoneal Dial ysis Past Surgical History: Reports: Hx Gynecologic Surgery - colposcopy - Immunizations Immunizations up to date: Yes Hx Diphtheria, Pertussis, Tetanus Vaccination: Yes - 2010 Review of Systems - Review of Systems Notes: Constitutional: Negative for fever. HENT: Negative for sore throat. Eyes: Negative for visual changes. Cardiovascular: Negative for chest pain. Respiratory: Negative for shortness of breath. Gastrointestinal: Positive for abdominal cramping, nausea, vomiting or diarrhea. Genitourinary: Negative for dysuria. Musculoskeletal: Negative for back pain. Skin: Negative for rash. Neurological: Negative for headaches, weakness or numbness. 10 point ROS negative except as marked above and in HPI. Physical Exam - Vital signs Vitals: Temp Pulse Resp BP Pulse Ox 98.1 F 71 18 115/56 L 100 05/03/19 13:06 05/03/19 13:06 05/03/19 13:06 05/03/19 13:06 05/03/19 13:06 - Notes Notes: GENERAL: Well-appearing, well-nourished and in no acute distress. HEAD: Atraumatic, normocephalic. EYES: Extraocular movements intact, sclera anicteric, conjunctiva are normal. NECK: Normal range of motion, supple without lymphadenopathy or JVD. LUNGS: Breath sounds clear to auscultation bilaterally and equal. No wheezes rales or rhonchi. HEART: Regular rate and rhythm without murmurs, rubs or gallops. ABDOMEN: Soft, nontender.. No guarding, no rebound. No masses appreciated. : DECLINED EXTREMITIES: Normal range of motion, no pitting or edema. No clubbing or cyanosis. NEUROLOGICAL: Cranial nerves II through XII grossly intact. Normal speech, normal gait. PSYCH: Normal mood, normal affect. SKIN: Warm, Dry, normal turgor, no rashes or lesions noted. Course - Re-evaluation Re-evalutation: 05/03/19 33-year-old G8, P4 approximately 7 weeks based off of LMP female presents for nausea/vomiting for 1 week and diarrhea for 2 days. Patient states that she did not know she was initially . However urine done here in the ER is positive. Patient denies vaginal bleeding/discharge, pelvic pain, fever, chest pain or dyspnea. Afebrile. Nontoxic, well-appearing. Abdomen soft nontender. PE otherwise unremarkable. No leukocytosis. Lab work is otherwise unremarkable. UA shows few WBCs however squamous cells are greater than WBCs so we will send for culture. Patient was given Reglan IV and given 2 bags of IV fluids. Patient states she is currently not having any nausea/vomiting. Will p.o. challenge and await beta hCG. 05/03/19 18:34 PO tolerant. Discussed all results with pt. Pt given prescription for diclegis. Pt instructed to call obgyn tomorrow for follow up appointment. Return precautions given/discussed. All questions/concerns addressed prior to discharge. - Vital Signs Vital signs: Temp Pulse Resp BP Pulse Ox 98.7 F 72 16 118/64 99 05/03/19 17:24 05/03/19 17:24 05/03/19 17:24 05/03/19 17:24 05/03/19 17:24 - Laboratory Result Diagrams: 05/03/19 13:50 05/03/19 13:50 Laboratory results interpreted by me: 1105/03/19 05/03/19 13:50 13:50 13:50 Lymph % (Auto) 48.9 H Gilchrist % (Auto) 13.7 H Absolute Neuts (auto) 1.4 L Seg Neutrophils % 35.2 L Sodium 136.8 L Potassium 3.4 L BUN 5 L Serum HCG, Qual Beta HCG, Quant Urine Protein 30 H Urine Ketones 20 H Leukocyte Esterase Rfl SMALL H 05/03/19 05/03/19 13:50 13:50 Lymph % (Auto) Gilchrist % (Auto) Absolute Neuts (auto) Seg Neutrophils % Sodium Potassium BUN Serum HCG, Qual POSITIVE H Beta HCG, Quant 06303.00 H Urine Protein Urine Ketones Leukocyte Esterase Rfl Discharge - Discharge Clinical Impression: Nausea & vomiting Qualifiers: Vomiting type: unspecified Vomiting Intractability: unspecified Qualified Code(s): R11.2 - Nausea with vomiting, unspecified Qualifiers: Weeks of gestation: unspecified Qualified Code(s): Z34.90 - Encounter for supervision of normal , unspecified, unspecified trimester Condition: Stable Disposition: HOME, SELF-CARE Additional Instructions: Your beta-hCG today was 33,590. Please take likely just as prescribed for nausea/vomiting. Please call your E[facility]OLLMENT MANAGEMENT VICE PRESIDENT tomorrow for follow-up appointment. Return to ER for any vomiting not controlled by medication, abdominal pain, pelvic pain, vaginal bleeding, or any other concerning symptoms. Prescriptions: Doxylamine Succinate/Vit B6 [Nunu Summers 10-10 mg Tablet] 2 each PO QPM #20 tablet. Referrals: JANI MARX, RICHARD [ACTIVE STAFF] - Follow up as needed
[2019-05-03 18:15] VITALS: BP 118/64
== END 2019-05-03 18:52 | disposition home or self-care (01) ==
LOC: ER 12:58
DX: O21.9 Vomiting of pregnancy, unspecified (principal); O26.899 Other specified pregnancy related conditions, unspecified trimester; R19.7 Diarrhea, unspecified; R10.9 Unspecified abdominal pain; Z3A.00 Weeks of gestation of pregnancy not specified; Z87.59 Personal history of other complications of pregnancy, childbirth and the puerperium; Z87.42 Personal history of other diseases of the female genital tract
CPT/HCPCS: 36415; 84702; 83690; 84703; 85025; 80053; 81001; J2765; J7030; 96361; 96374; 99284

== ENCOUNTER 2019-05-23 03:32 | Emergency (ER) | payer SELFPAY ==
[2019-05-23 04:55] LABS: ABSOLUTE EOSINOPHILS # (AUTO) 0.1 10^3/uL (0.0-0.6); ABSOLUTE LYMPHOCYTES (AUTO) 3.3 10^3/uL (0.5-4.7); ABSOLUTE MONOCYTES (AUTO) 0.6 10^3/uL (0.1-1.4); ABSOLUTE NEUT (AUTO) 4.2 10^3/uL (1.7-8.2); BASOPHILS % (AUTO) 0.3 % (0-2); EOSINOPHILS % (AUTO) 1.6 % (0-6); HEMATOCRIT 35.5 % (36.0-47.0); HEMOGLOBIN 11.9 g/dL (12.0-15.5); LYMPHOCYTES % (AUTO) 40.5 % (13-45); MEAN CORPUSCULAR HEMOGLOBIN 27.9 pg (27.0-33.4); MEAN CORPUSCULAR HGB CONC 33.5 g/dL (32.0-36.0); MEAN CORPUSCULAR VOLUME 83 fl (80-97); MONOCYTES % (AUTO) 6.7 % (3-13); PLATELET COUNT 221 10^3/uL (150-450); RED BLOOD COUNT 4.26 10^6/uL (3.72-5.28); RED CELL DISTRIBUTION WIDTH 13.9 % (11.5-14.0); SEGMENTED NEUTROPHILS % (AUTO) 50.9 % (42-78); TOTAL CELLS COUNTED % (AUTO) 100 %; WHITE BLOOD COUNT 8.2 10^3/uL (4.0-10.5)
[2019-05-23 05:07] LABS: APPEARANCE,URINE SLIGHTLY-CLOUDY; BILIRUBIN,URINE NEGATIVE (NEGATIVE); COLOR,URINE YELLOW; GLUCOSE, URINE NEGATIVE (NEGATIVE); KETONES,URINE NEGATIVE (NEGATIVE); LEUKOCYTE ESTERASE,URINE MODERATE (NEGATIVE); NITRITE,URINE NEGATIVE (NEGATIVE); PROTEIN,URINE 30 mg/dL (NEGATIVE); URINE SPECIFIC GRAVITY 1.028; UROBILINOGEN,URINE NEGATIVE mg/dL (<2.0)
--- NOTE | 2019-05-23 05:25 | ER Document Report ---
ED Medical Screen (RME) - General Chief Complaint: Lower Abdominal Pain Stated Complaint: BACK PAIN,VAGINAL BLEEDING Time Seen by Provider: 05/23/19 05:19 Notes: 33-year-old female, at 10 weeks gestation by last menstrual period, chief complaint of developing abdominal/pelvic cramping and vaginal spotting this morning. She has not had an ultrasound for this , just a health department visit to confirm the . She states she was having a lot of vomiting but this is under control. Denies any other complaints. TRAVEL OUTSIDE OF THE [place] IN LAST 30 DAYS: No - Related Data Allergies/Adverse Reactions: No Known Allergies Allergy (Verified 05/03/19 13:24) Past Medical History - Social History Family history: Reviewed & Not Pertinent Pulmonary Medical History: Reports: Hx Bronchitis - 2013 Renal/ Medical History: Reports: Hx Ovarian Cysts. Denies: Hx Peritoneal Dialysis Past Surgical History: Reports: Hx Gynecologic Surgery - colposcopy - Immunizations Immunizations up to date: Yes Hx Diphtheria, Pertussis, Tetanus Vaccination: Yes - 2010 Physical Exam - Vital signs Vitals: Temp Pulse Resp BP Pulse Ox 98.1 F 82 16 131/67 H 100 05/23/19 03:47 05/23/19 03:47 05/23/19 03:47 05/23/19 03:47 05/23/19 03:47 - General General appearance: Appears well In distress: None - Abdominal Tenderness: Nontender. No: Tender, Guarding Course - Re-evaluation Re-evalutation: I have greeted and performed a rapid initial assessment of this patient. A comprehensive ED assessment and evaluation of the patient, analysis of test results and completion of the medical decision making process will be conducted by additional ED providers. - Vital Signs Vital signs: Temp Pulse Resp BP Pulse Ox 98.1 F 82 16 131/67 H 100 05/23/19 03:47 05/23/19 03:47 05/23/19 03:47 05/23/19 03:47 05/23/19 03:47 - Laboratory Result Diagrams: 05/23/19 04:17 Laboratory results interpreted by me: 05/23/19 05/23/19 04:17 04:17 Hgb 11.9 L Hct 35.5 L Urine Protein 30 H Ur Leukocyte Esterase MODERATE H
[2019-05-23 06:25] VITALS: BP 113/60
--- NOTE | 2019-05-23 06:41 | RADIOLOGY REPORT (SQ) ---
EXAM: Ultrasound transvaginal less than 14 weeks CLINICAL DATA: 33-year-old female with abdominal and pelvic cramping and vaginal bleeding, positive hCG. LMP =03/13/2019; clinical gestational age 10 weeks, 1 day; estimated due date 12/18/2019. TECHNICAL DATA: Sonographic imaging of the pelvis was performed transabdominally and endovaginally on 05/23/2019 at 5:45 AM COMPARISONS: None FINDINGS: The uterus is normal in size and configuration and measures: 10.7 x 6.8 x 8.5 cm. There is a crescentic area of decreased echogenicity adjacent to the gestational sac measuring approximately 3.4 x 1.0 x 1.8 cm likely representing a subchorionic hemorrhage. There is a tiny cystic area to the right of the gestational sac measuring 5 mm in greatest dimension. The cervix measures 3 cm in length. There is a normal appearing intrauterine gestational sac. A yolk sac is present. There is a pole present with a crown rump length of crown-rump length of 2.9 cm corresponding to a gestational age of 9 weeks, 5 days. The estimated date of confinement is 12/21/2019. Doppler imaging reveals a heart rate of 158 beats per minute. The right ovary is grossly normal in size, shape and echogenicity and measures: 2.9 x 2.7 x 2.1 cm. There is a corpus luteal cyst arising from the right ovary. There is normal pulsed and color Doppler flow to the right ovary.There are no right adnexal mass lesions.. The left ovary is not well visualized. No left adnexal mass lesions are seen. There is no free fluid in the pelvis. IMPRESSION: 1. Single living intrauterine with an estimated ultrasound age of nine weeks, 5 days corresponding to an estimated due date of 12/21/2019 This corresponds to within three days of the expected clinical gestational age. 2. Nonvisualization of the left ovary on this examination. 3. Crescentic area of decreased echogenicity adjacent to the gestational sac likely representing a subchorionic hemorrhage measuring 3.4 x 1.0 x 1.8 cm.
--- NOTE | 2019-05-23 06:41 | ER Document Report ---
ED General - General Chief Complaint: Lower Abdominal Pain Stated Complaint: BACK PAIN,VAGINAL BLEEDING Time Seen by Provider: 05/23/19 05:19 Mode of Arrival: Ambulatory Information source: Patient TRAVEL OUTSIDE OF THE [place] IN LAST 30 DAYS: No - HPI Notes: Patient presents with lower abdominal cramping pain. She states she has had this for several days. It is intermittent. Nothing makes it better or worse. It does radiate across the lower abdomen. She is also had some rectal vaginal sharp pains intermittently. She states she is currently approximate about 10 weeks . She states that this pain feels similar to previous miscarriages that she has had. She states that she has had 3 miscarriages this year. Patient states she saw some blood 2 days ago when she wiped but other than that has not seen any bleeding. She has had some intermittent vomiting. - Related Data Allergies/Adverse Reactions: No Known Allergies Allergy (Verified 05/03/19 13:24) Past Medical History - General Information source: Patient - Social History Smoking Status: Never Smoker Frequency of alcohol use: None Drug Abuse: None Family History: Arthritis, Hypertension, Malignancy, Other - copd and asthma Patient has suicidal ideation: No Patient has homicidal ideation: No Pulmonary Medical History: Reports: Hx Bronchitis - 2013 Renal/ Medical History: Reports: Hx Ovarian Cysts. Denies: Hx Peritoneal Dialysis Past Surgical History: Reports: Hx Gynecologic Surgery - colposcopy - Immunizations Immunizations up to date: Yes Hx Diphtheria, Pertussis, Tetanus Vaccination: Yes - 2010 Review of Systems - Review of Systems Constitutional: denies: Chills, Fever Cardiovascular: denies: Chest pain, Palpitations Respiratory: denies: Cough, Short of breath Gastrointestinal: Abdominal pain -: Yes All other systems reviewed and negative Physical Exam - Vital signs Vitals: Temp Pulse Resp BP Pulse Ox 98.1 F 82 16 131/67 H 100 05/23/19 03:47 05/23/19 03:47 05/23/19 03:47 05/23/19 03:47 05/23/19 03:47 Interpretation: Normal - General General appearance: Appears well, Alert - HEENT Head: Normocephalic, Atraumatic Eyes: Normal Pupils: PERRL - Respiratory Respiratory status: No respiratory distress Chest status: Nontender Breath sounds: Normal Chest palpation: Normal - Cardiovascular Rhythm: Regular Heart sounds: Normal auscultation Murmur: No - Abdominal Inspection: Normal Distension: No distension Bowel sounds: Normal Tenderness: Nontender Organomegaly: No organomegaly - Back Back: Normal, Nontender - Extremities General upper extremity: Normal inspection, Nontender, Normal color, Normal ROM, Normal temperature General lower extremity: Normal inspection, Nontender, Normal color, Normal ROM, Normal temperature, Normal weight bearing. No: Jannie's sign - Neurological Neuro grossly intact: Yes Cognition: Normal Orientation: AAOx4 Chloé Coma Scale Eye Opening: Spontaneous Chloé Coma Scale Verbal: Oriented Chloé Coma Scale Motor: Obeys Commands Chloé Coma Scale Total: 15 Speech: Normal Motor strength normal: LUE, RUE, LLE, RLE Sensory: Normal - Psychological Associated symptoms: Normal affect, Normal mood - Skin Skin Temperature: Warm Skin Moisture: Dry Skin Color: Normal Course - Re-evaluation Re-evalutation: 05/23/19 06:48 Patient presents with abdominal pain while . Ultrasound shows a viable 9-week fetus with a good heart rate. Patient otherwise has a stable exam and vital signs. Labs are stable. Patient will follow-up with [facility]. - Vital Signs Vital signs: Temp Pulse Resp BP Pulse Ox 97.6 F 67 16 113/60 98 05/23/19 06:23 05/23/19 06:23 05/23/19 06:23 05/23/19 06:23 05/23/19 06:23 - Laboratory Result Diagrams: 05/23/19 04:17 Laboratory results interpreted by me: 05/23/19 05/23/19 05/23/19 04:17 04:17 04:17 Hgb 11.9 L Hct 35.5 L Beta HCG, Quant 779921.00 H Urine Protein 30 H Ur Leukocyte Esterase MODERATE H - Diagnostic Test Radiology reviewed: Image reviewed, Reports reviewed Discharge - Discharge Clinical Impression: Abdominal pain affecting Condition: Stable Disposition: HOME, SELF-CARE Instructions: Abdominal Pain ([facility]) Additional Instructions: Please follow-up with [facility] as soon as possible Your due date is approximately December 21, 2019
== END 2019-05-23 06:55 | disposition home or self-care (01) ==
LOC: ER 03:32
DX: O26.91 Pregnancy related conditions, unspecified, first trimester (principal); R10.30 Lower abdominal pain, unspecified; N93.8 Other specified abnormal uterine and vaginal bleeding; M54.9 Dorsalgia, unspecified; Z3A.09 9 weeks gestation of pregnancy
CPT/HCPCS: 36415; 76817; 81001; 84702; 85025; 93976; 99284

== ENCOUNTER → 2019-05-29 | Outpatient (CLI) | payer SELFPAY ==
--- NOTE | 2019-05-29 16:11 | RADIOLOGY REPORT (SQ) ---
EXAM DESCRIPTION: U/S [id number] TRNABD 1GES W/ODOP COMPLETED DATE/TIME: 05/29/2019 3:37 pm REASON FOR STUDY: (Z34.81)ENCOUNTER FOR SUPRVSN OF NORMAL , FIRST TRIMESTER Z34.81 ENCOUNT ER FOR SUPRVSN OF NORMAL , FIRST TRIM COMPARISON: 12/27/2018 TECHNIQUE: Transabdominal static and realtime grayscale images acquired of the pelvis. Additional se lected spectral and color Doppler images recorded. All images stored on PACs. bHCG: Not available. CLINICAL DATES: 10 week 0 days. LIMITATIONS: None. FINDINGS: FETUS: Single Living intrauterine . ULTRASOUND EGA: 10 weeks 5 days. ULTRASOUND SHINE: 12/20/2019 EFW: Not applicable less than 20 weeks. CRL: 3.8 cm. FHR: 169 beats per minute. SURVEY: Too early to assess. AMNIOTIC FLUID: Adequate amount. PLACENTA: Not yet developed due to early gestation. SUBCHORIONIC BLEED: Yes. SIZE OF BLEED: 1.6 x 1.3 x 0.4 cm. UTERUS: No masses. No anomalies. CERVICAL LENGTH: 2.1 cm. Closed. RIGHT ADNEXA: Normal ovary with normal vascular flow. No adnexal free fluid. No adnexal masses. LEFT ADNEXA: Normal ovary with normal vascular flow. No adnexal free fluid. No adnexal masses. FREE FLUID: None. OTHER: No other significant finding. IMPRESSION: LIVING INTRAUTERINE . EGA 10 WEEKS 5 DAYS. THERE IS A SMALL SUBCHORIONIC BLEED. Trimester of : First trimester - 0 to 13 weeks. TECHNICAL DOCUMENTATION: JOB ID: [id number]- All Rights Reserved rev-10/28 Reading location - IP/workstation name: [email or web address]
== END ==
LOC: RAD 14:48
PROVIDERS: ATTEND Midwife
DX: Z34.81 Encounter for supervision of other normal pregnancy, first trimester (principal); Z3A.10 10 weeks gestation of pregnancy
CPT/HCPCS: 76801

== ENCOUNTER 2019-07-14 18:52 | Emergency (ER) | payer MEDICAID ==
--- NOTE | 2019-07-14 19:33 | ER Document Report ---
ED Medical Screen (RME) - General Chief Complaint: Neck Swelling Stated Complaint: SWOLLEN NECK Time Seen by Provider: 07/14/19 19:15 Primary Care Provider: NICK BUSCH CNM [Primary Care Provider] - Follow up as needed TRAVEL OUTSIDE OF THE [place] IN LAST 30 DAYS: No - HPI Notes: 07/14/19 19:31 33-year-old female to the emergency department with complaints of swelling that began today underneath her chin. She states that initially she had pain in her right ear coming down along her jaw she thought that maybe she had an ear infection. However today she started to notice that just underneath her chin she began to swell. She denies any drainage from the area. She denies any fevers or chills. She states that she is about 17 weeks . On brief medical screening exam there is tenderness and large edematous area in the submandibular region of the neck. There is no Robbie's angina in the mouth. The patient has a grossly patent airway. She is not drooling. She does not have a hot potato voice. She also has some enlargement of her neck at the level of the thyroid. The thyroid feels enlarged as well. Patient is unsure if her neck at the level of the thyroid is more swollen today. I performed a brief medical screening exam on the patient determined that she will need further evaluation by main side provider. I have initiated orders to include labs and imaging studies. It is noted that she is 17 weeks and I consulted with my ER attending about getting a CT soft tissue neck for best evaluation. I advised patient of the risks of CT scan while . We will shield her abdomen. She agrees with the plan. - Related Data Allergies/Adverse Reactions: No Known Allergies Allergy (Verified 07/14/19 19:12) Home Medications: Prenatals Past Medical History - Social History Family history: Reviewed & Not Pertinent Pulmonary Medical History: Reports: Hx Bronchitis - 2013 Renal/ Medical History: Reports: Hx Ovarian Cysts. Denies: Hx Peritoneal Dialysis Past Surgical History: Reports: Hx Gynecologic Surgery - colposcopy - Immunizations Immunizations up to date: Yes Hx Diphtheria, Pertussis, Tetanus Vaccination: Yes - 2010 Physical Exam - Vital signs Vitals: Temp Pulse Resp BP Pulse Ox 98.2 F 85 16 116/66 100 07/14/19 19:01 07/14/19 19:01 07/14/19 19:01 07/14/19 19:01 07/14/19 19:01 Course - Vital Signs Vital signs: Temp Pulse Resp BP Pulse Ox 98.2 F 85 16 116/66 100 07/14/19 19:01 07/14/19 19:01 07/14/19 19:01 07/14/19 19:01 07/14/19 19:01 Doctor's Discharge - Discharge Referrals: NICK BUSCH CNM [Primary Care Provider] - Follow up as needed
[2019-07-14 19:45] LABS: ABSOLUTE EOSINOPHILS # (AUTO) 0.3 10^3/uL (0.0-0.6); ABSOLUTE LYMPHOCYTES (AUTO) 2.3 10^3/uL (0.5-4.7); ABSOLUTE MONOCYTES (AUTO) 0.6 10^3/uL (0.1-1.4); ABSOLUTE NEUT (AUTO) 4.4 10^3/uL (1.7-8.2); BASOPHILS % (AUTO) 0.6 % (0-2); EOSINOPHILS % (AUTO) 3.4 % (0-6); HEMATOCRIT 33.8 % (36.0-47.0); HEMOGLOBIN 11.5 g/dL (12.0-15.5); LYMPHOCYTES % (AUTO) 30.4 % (13-45); MEAN CORPUSCULAR HEMOGLOBIN 28.2 pg (27.0-33.4); MEAN CORPUSCULAR VOLUME 83 fl (80-97); MONOCYTES % (AUTO) 8.4 % (3-13); PLATELET COUNT 220 10^3/uL (150-450); RED BLOOD COUNT 4.08 10^6/uL (3.72-5.28); RED CELL DISTRIBUTION WIDTH 14.3 % (11.5-14.0); SEGMENTED NEUTROPHILS % (AUTO) 57.2 % (42-78); TOTAL CELLS COUNTED % (AUTO) 100 %; WHITE BLOOD COUNT 7.7 10^3/uL (4.0-10.5)
[2019-07-14] MEDS ORDERED: ONDANSETRON HCL INJ/PF 4 MG/2 ML SDV IV ONE (19:59)
[2019-07-14 20:02] LABS: ALBUMIN 3.6 g/dL (3.5-5.0); ALKALINE PHOSPHATASE 59 U/L (38-126); ANION GAP 10 (5-19); ASPARTATE AMINO TRANSFERASE 22 U/L (14-36); BILIRUBIN,DIRECT 0.2 mg/dL (0.0-0.4); BILIRUBIN,TOTAL 0.3 mg/dL (0.2-1.3); BLOOD UREA NITROGEN 9 mg/dL (7-20); CARBON DIOXIDE 21 mmol/L (22-30); CHLORIDE 105 mmol/L (98-107); GLUCOSE 77 mg/dL (75-110); POTASSIUM 4.1 mmol/L (3.6-5.0)
--- NOTE | 2019-07-14 20:30 | RADIOLOGY REPORT (SQ) ---
EXAM DESCRIPTION: CT NECK WITH IV CONTRAST COMPLETED DATE/TME: 07/14/2019 19:28 CLINICAL HISTORY: 33 years, Female, neck swelling and pain COMPARISON: None. TECHNIQUE: Contrast enhanced CT of the neck was performed. Images were obtained after the uneventful administration of 74 mL of Omnipaque 350 intravenous contrast. Images stored on PACS. All CT scanners at this facility use dose modulation, iterative reconstruction, and/or weight based dosing when appropriate to reduce radiation dose to as low as reasonably achievable (ALARA). [facility]: Dose Right [facility]: CareDose [facility]: Dose Right [facility]: Teradose 4D [facility]: NoDaysOff LIMITATIONS: None. FINDINGS: Limited evaluation of the chest reveals clear lungs. Soft tissue density within the anterior mediastinum corresponds to residual thymus. Thyroid gland enhances symmetrically. The hypopharynx, oropharynx, and nasopharynx show no suspicious abnormal normality. The epiglottis appears normal. The retropharyngeal fat plane remains intact. Adenoids and palatine tonsils appear normal in size and configuration. A few small intraparotid lymph nodes are noted on the right. Bilateral submandibular glands appear normal. Visualized is mild inflammatory stranding located about the submental soft tissues. A few associated mildly prominent level 1A lymph nodes are evident on image 62 of series 2. No drainable fluid collection is identified. Visualized globes and orbits show no suspicious abnormality. Limited assessment of the brain parenchyma reveals no suspicious abnormality. Vascular structures opacify with contrast normally. In addition, visualized major dural venous sinuses appear to opacify with contrast normally as well. However, the left transverse and sigmoid sinuses are somewhat hypoplastic. Bone windows show no suspicious abnormality about the visualized cervicothoracic spine. A few additional mildly prominent bilateral level IIa and IIb lymph nodes are noted, likely reactive. One of the largest is located on the right on image 46 of series 2 measuring 2.7 x 1.1 cm in size. IMPRESSION: Mild inflammatory stranding located about the submental soft tissues with associated mild deep cervical lymphadenopathy, likely reactive. Correlate for soft tissue cellulitis and suggest clinical follow-up to resolution. No drainable abscess. TECHNICAL DOCUMENTATION: Quality ID # [id number]: Final reports with documentation of one or more dose reduction techniques (e.g., Automated exposure control, adjustment of the mA and/or kV according to patient size, use of iterative reconstruction technique) copyright 2011 [employer]- All Rights Reserved
[2019-07-14] MEDS ORDERED: AMOXICILLIN TR/POT CLAVULANATE 500-125 MG TAB PO ONE (22:33)
[2019-07-14] MEDS ORDERED: OXYCODONE-ACETAMINOPHEN 5-325 MG TABLET PO ONE (22:37)
--- NOTE | 2019-07-14 22:40 | ER Document Report ---
ED General - General Chief Complaint: Neck Swelling Stated Complaint: SWOLLEN NECK Time Seen by Provider: 07/14/19 19:15 Primary Care Provider: NICK BUSCH CNM [NO LOCAL MD] - Follow up as needed TRAVEL OUTSIDE OF THE [place] IN LAST 30 DAYS: No - HPI Notes: Patient is a G7, P4 female at approximately 16 weeks gestation who presents to the emergency department for evaluation of swelling under her chin. She states that over the last 24 hours she had a strange pain in her right neck, right ear, and it hurt occasionally in the anterior neck when she swallowed. This morning she developed swelling under her chin. She denies any dental pain. No mouth pain. No difficulty speaking or swallowing. Breathing without any issues. No fevers or chills. No nausea or vomiting. She is still feeling the baby move, denies any vaginal bleeding or discharge. - Related Data Allergies/Adverse Reactions: No Known Allergies Allergy (Verified 07/14/19 19:12) Home Medications: Prenatals Past Medical History - General Information source: Patient - Social History Smoking Status: Never Smoker Family History: Arthritis, Hypertension, Malignancy, Other - copd and asthma Patient has suicidal ideation: No Patient has homicidal ideation: No Pulmonary Medical History: Reports: Hx Bronchitis - 2013 Renal/ Medical History: Reports: Hx Ovarian Cysts. Denies: Hx Peritoneal Dialysis Skin Medical History: Reports Other - History of axillary abscess Past Surgical History: Reports: Hx Gynecologic Surgery - colposcopy - Immunizations Immunizations up to date: Yes Hx Diphtheria, Pertussis, Tetanus Vaccination: Yes - 2010 Review of Systems - Review of Systems Constitutional: No symptoms reported EENT: See HPI Cardiovascular: No symptoms reported Respiratory: No symptoms reported Gastrointestinal: No symptoms reported Genitourinary: No symptoms reported Female Genitourinary: Musculoskeletal: No symptoms reported Skin: No symptoms reported Neurological/Psychological: No symptoms reported Physical Exam - Vital signs Vitals: Temp Pulse Resp BP Pulse Ox 98.2 F 85 16 116/66 100 07/14/19 19:01 07/14/19 19:01 07/14/19 19:01 07/14/19 19:01 07/14/19 19:01 - Notes Notes: Vital signs reviewed, please refer to chart. Head is normocephalic, atraumatic. Pupils equal round, reactive to light. Bilateral TMs are pearly stevens with good light reflex. Nares are patent. Oral mucosa is moist. Dentition is in excellent condition with no gingival edema or erythema. No sublingual swelling or tenderness is appreciated. Neck is supple without meningismus. MS sub- mental region the patient has an approximately 4 x 4 centimeter area of swelling with associated calor. No clear rubor, but this may be limited by patient's skin color. I do not appreciate any significant fluctuance or induration. Heart is regular rate and rhythm. Lungs are clear to auscultation bilaterally. Abdomen is soft, nontender, normoactive bowel sounds throughout. Extremities without cyanosis, clubbing. Posterior calves are nontender. Peripheral pulses are equal. Skin is warm and dry. Patient is awake, alert, neurological exam is nonfocal. Course - Re-evaluation Re-evalutation: 07/14/19 22:38 Patient presents emergency department for evaluation. She was seen initially through triage. Laboratory investigations and imaging were obtained. Imaging is most consistent with a localized cellulitis, and clinically this seems the most likely as well. I did review her wound culture from several years ago. She grew Proteus at that time, she has no MRSA history. We will treat the patient with Augmentin. She is given her first dose here. She is given a prescription for same. She is also given 1 dose of Percocet here, told to take Tylenol at home. She is to keep her head elevated as much as possible to minimize swelling. Follow-up with primary care and OB this week, return to the ED with worsening. - Vital Signs Vital signs: Temp Pulse Resp BP Pulse Ox 98.2 F 85 16 116/66 100 07/14/19 19:07/14/19 19:07/14/19 19:07/14/19 19:07/14/19 19:01 - Laboratory Result Diagrams: 07/14/19 19:28 07/14/19 19:28 Laboratory results interpreted by me: 07/14/19 07/14/19 19:28 19:28 Hgb 11.5 L Hct 33.8 L RDW 14.3 H Sodium 135.8 L Carbon Dioxide 21 L Creatinine 0.45 L - Diagnostic Test Radiology reviewed: Reports reviewed Radiology results interpreted by me: 07/14/19 22:[address] 07/14/19 19:28 IMPRESSION: Mild inflammatory stranding located about the submental soft tissues with associated mild deep cervical lymphadenopathy, likely reactive. Correlate for soft tissue cellulitis and suggest clinical follow-up to resolution. No drainable abscess. TECHNICAL DOCUMENTATION: Quality ID # [id number]: Final reports with documentation of one or more dose reduction techniques (e.g., Automated exposure control, adjustment of the mA and/or kV according to patient size, use of iterative reconstruction technique) copyright 2011 [employer]- All Rights Reserved Discharge - Discharge Clinical Impression: Cellulitis Qualifiers: Site of cellulitis: neck Qualified Code(s): L03.221 - Cellulitis of neck Condition: Stable Disposition: HOME, SELF-CARE Instructions: Cellulitis ([facility]) Additional Instructions: Take antibiotic as prescribed until gone, starting tomorrow. Rest. Take Tylenol as needed for pain. Try to keep your head elevated to minimize swelling. If you develop worsening swelling, swelling under the tongue, difficulty speaking, swallowing, or breathing, or any other new or concerning symptoms of any sort, please return immediately to the emergency department for evaluation. Referrals: NICK BUSCH CNM [NO LOCAL MD] - Follow up as needed
[2019-07-14 23:33] VITALS: BP 102/58
== END 2019-07-14 23:28 | disposition home or self-care (01) ==
LOC: ER 18:52
DX: L03.221 Cellulitis of neck (principal); R22.1 Localized swelling, mass and lump, neck
CPT/HCPCS: 99284; 96374; 36415; 84443; 85025; 80053; 70491; J3490; J2405

== ENCOUNTER 2019-12-16 10:16 | Outpatient (CLI) | payer MEDICAID ==
[2019-12-16 11:19] LABS: APPEARANCE,URINE CLOUDY; BILIRUBIN,URINE NEGATIVE (NEGATIVE); COLOR,URINE YELLOW; GLUCOSE, URINE NEGATIVE (NEGATIVE); KETONES,URINE NEGATIVE (NEGATIVE); LEUKOCYTE ESTERASE,URINE LARGE (NEGATIVE); NITRITE,URINE NEGATIVE (NEGATIVE); PROTEIN,URINE 100 mg/dL (NEGATIVE); URINE SPECIFIC GRAVITY 1.028
[2019-12-16 11:37] LABS: ABSOLUTE EOSINOPHILS # (AUTO) 0.1 10^3/uL (0.0-0.6); ABSOLUTE LYMPHOCYTES (AUTO) 2.4 10^3/uL (0.5-4.7); ABSOLUTE MONOCYTES (AUTO) 0.5 10^3/uL (0.1-1.4); ABSOLUTE NEUT (AUTO) 3.1 10^3/uL (1.7-8.2); BASOPHILS % (AUTO) 0.3 % (0-2); EOSINOPHILS % (AUTO) 1.9 % (0-6); HEMATOCRIT 34.9 % (36.0-47.0); HEMOGLOBIN 11.8 g/dL (12.0-15.5); LYMPHOCYTES % (AUTO) 38.6 % (13-45); MEAN CORPUSCULAR HEMOGLOBIN 27.9 pg (27.0-33.4); MEAN CORPUSCULAR HGB CONC 33.9 g/dL (32.0-36.0); MEAN CORPUSCULAR VOLUME 82 fl (80-97); MONOCYTES % (AUTO) 8.4 % (3-13); PLATELET COUNT 181 10^3/uL (150-450); RED BLOOD COUNT 4.23 10^6/uL (3.72-5.28); RED CELL DISTRIBUTION WIDTH 15.4 % (11.5-14.0); SEGMENTED NEUTROPHILS % (AUTO) 50.8 % (42-78); TOTAL CELLS COUNTED % (AUTO) 100 %; WHITE BLOOD COUNT 6.1 10^3/uL (4.0-10.5)
[2019-12-16 11:37] LABS: UR PRO/CREAT RATIO RESULT 0.1 mg/mg (0.0-0.2); URINE PROTEIN 22.7 mg/dL (<12)
[2019-12-16 11:48] LABS: URINE AMPHETAMINES SCREEN NEGATIVE; URINE BARBITURATES SCREEN NEGATIVE; URINE BENZODIAZEPINES SCREEN NEGATIVE; URINE COCAINE SCREEN NEGATIVE; URINE MARIJUANA (THC) SCREEN NEGATIVE; URINE METHADONE SCREEN NEGATIVE; URINE PHENCYCLIDINE SCREEN NEGATIVE
[2019-12-16 11:51] LABS: ALBUMIN 3.2 g/dL (3.5-5.0); ALKALINE PHOSPHATASE 97 U/L (38-126); ASPARTATE AMINO TRANSFERASE 20 U/L (14-36); BILIRUBIN,TOTAL 0.3 mg/dL (0.2-1.3); BLOOD UREA NITROGEN 10 mg/dL (7-20); CALCIUM 8.6 mg/dL (8.4-10.2); CARBON DIOXIDE 20 mmol/L (22-30); CHLORIDE 109 mmol/L (98-107); GLUCOSE 92 mg/dL (75-110); POTASSIUM 3.9 mmol/L (3.6-5.0); TOTAL PROTEIN 6.3 g/dL (6.3-8.2); URIC ACID 5.1 mg/dL (2.5-6.2)
[2019-12-16 11:57] LABS: ANION GAP 4 (5-19)
--- NOTE | 2019-12-16 11:57 | Non Stress Test Report ---
Non Stress Test Datetime Report Generated by CPN: 12/16/2019 11:57 DEMOGRAPHIC Test Number: 1 EGA NST: 38.5 INDICATION Indication for Study (NST) Other: pelvic pain/pressure MONITORING Monitor Explained: Monitor Explained; Test Explained; Patient Verbalized Understanding Time on Monitor: 12/16/2019 10:35 Time off Monitor: 12/16/2019 11:55 NST Duration: 80 NST INTERVENTIONS NST Interventions: PO Hydration Physician Notified NST: Dr Caceres BABY A: [id number] BABY A Movement : Present Contraction Frequency : irregular FHR Baseline : 135 Accelerations : 15X15 Decelerations : None Variability : Moderate 6-25bpm NST Review: Meets Criteria for Reactive NST NST Review and Verified By : TMartin,RN NST Results: Reactive NST REPORT Report Trigger: Send Report
== END 2019-12-16 12:36 | disposition home or self-care (01) ==
LOC: LC 10:16
PROVIDERS: ATTEND Student in an Organized Health Care Education/Training Program
DX: O26.893 Other specified pregnancy related conditions, third trimester (principal); R10.2 Pelvic and perineal pain; Z3A.38 38 weeks gestation of pregnancy
CPT/HCPCS: 36415; 59025; 80053; 80307; 81005; 82570; 83615; 84156; 84550; 85025

== ENCOUNTER 2019-12-19 15:39 | Inpatient (IN) | payer MEDICAID ==
[2019-12-19] MEDS ORDERED: RINGERS SOLUTION,LACTATED 1,000 ML IV ONE (16:11)
[2019-12-19] MEDS ORDERED: PENICILLIN G POTASSIUM 5,000,000 UNIT in DEXTROSE 5%-WATER 100 ML IV ONE (16:11)
[2019-12-19] MEDS ORDERED: RINGERS SOLUTION,LACTATED 1,000 ML IV PRN (16:17)
[2019-12-19] MEDS ORDERED: PENICILLIN G-K 5 MILLION UNIT VIAL ONE (16:32)
--- NOTE | 2019-12-19 16:34 | Admission Physical ---
Datetime Report Generated by CPN: 12/19/2019 16:34 CURRENT ADMISSION Chief Complaint: Suspected Ruptured Membranes Chief Complaint Other: Reports SROM at 1530, clear and large amount. Feels good FM. No regular contractions, just "occassionally" No Vaginal bleeding, fever, chills, SANTOS, CP, SOB, RUQ pain, n/v or vision changes Admit Impression : Term, Intrauterine ; Ruptured Membranes Admit Plan: Admit to Unit; Initiate Labor Protocol; Initiate Labor Augmentation Protocol ALLERGIES Medication Allergies: No Medication Allergies: No Known Allergies (07/14/2019) Latex: No Latex Allergies Food Allergies: n/a OBSTETRICAL HISTORY EDC: 12/25/2019 00:00 : 8 Para: 4 Term: 4 : 0 SAB: 3 IAB: 0 Ectopic: 0 Livin Cesareans: 0 VBACs: 0 Multiple Births: 0 Gestational Diabetes: No Rh Sensitization: No Incompetent Cervix: No LADONNA: No Infertility: No ART Treatment: No Uterine Anomaly: No IUGR: No Hx Previous C/S: No Macrosomia: No Hx Loss/Stillborn: No PIH: No Hx : No Placenta Previa/Abruption: No Depression/PP Depression: No PTL/PROM: No Post Hemorrhage: No Current Procedures: Ultrasound Obstetrical History Comments: G1-Term delivery- boy G2-SAB G3-Term -Girl G4-Term -Boy G5-Term -Boy G6-SAB G7-SAB G8-Current SEE RECORDS Alcohol: No Marijuana : No Cocaine: No Other Illicit Drugs: No Cigarettes: Former Smoker. [id number] Cigarette Comments: quit a year ago October 2018 MEDICAL HISTORY Diabetes: No Blood Transfusion: No Pulmonary Disease (Asthma, TB): No Breast Disease: No Hypertension: No Travel Attendants Surgery: No Heart Disease: No Hosp/Surgery: Yes Autoimmune Disorder: No Anesthetic Complications: No Kidney Disease: No Abnormal Pap Smear: Yes Neuro/Epilepsy: No Psychiatric Disorders: No Other Medical Diseases: No Hepatitis/Liver Disease: No Significant Family History: No Varicosities/Phlebitis: No Trauma/Violence : No Thyroid Dysfunction: No Medical History Comments: Hospitalized for childbirths INFECTIOUS HISTORY Gonorrhea: No Genital Herpes: No Chlamydia: Yes Tuberculosis: No Syphilis: No Hepatitis: No HIV/AIDS Exposure: No Rash or Viral Illness: No HPV: No Infectious History Comments: Chlamydia 4-5 years ago PHYSICAL EXAM General: Normal HEENT: Normal Neurologic: Normal Thyroid: Normal Heart: Normal Lungs: Normal Breast: Normal Back: Normal Abdomen: Normal Genitourinary Exam: Normal Extremities: Normal DTRs: Normal Pelvic Type: Adequate Vital Signs: Reviewed; Within Normal Limits VAGINAL EXAM Dilatation: 3 Effacement: 50 Station: -2 Contraction Comments: Contractions Q 8 minutes MEMBRANES Membranes: Ruptured Amniotic Fluid Color: Clear FETUS A EGA: 39.1 Monitoring: External US FHR- Baseline: 135 Variability: Moderate 6-25bpm Accelerations: 15X15 Decelerations: None FHR Category: Category I Presentation: Vertex Admit Comment: 34 yo at 39.1 wks EGA with SROM, clear fluid at 1530 -Admit to LDR -CEFM and toco -NPO and IVFs, LR at 125 cc/hr, after bolus of 1 liter -GBS positive, begin PCN 5 million units now and repeat PCN 2.5 million units every 4 hours -Hx of 4 prior SVDs -Anticipate -Desires epidural when appropriate PLANS FOR LABOR AND DELIVERY Labor and Delivery: None Pain Management: Epidural Feeding Preference: Breast Benefit of Breast Feed Discussed: Yes Circumcision: Yes INFORMED CONSENT Informed Consent Obtained: Vaginal Delivery; Risks, Benefits and Alternatives Discussed Signature: with User ID: [email or web address] : with User ID: Shin
[2019-12-19 16:35] LABS: APPEARANCE,URINE SLIGHTLY-CLOUDY; BILIRUBIN,URINE NEGATIVE (NEGATIVE); COLOR,URINE YELLOW; GLUCOSE, URINE NEGATIVE (NEGATIVE); KETONES,URINE NEGATIVE (NEGATIVE); LEUKOCYTE ESTERASE,URINE TRACE (NEGATIVE); NITRITE,URINE NEGATIVE (NEGATIVE); PROTEIN,URINE 30 mg/dL (NEGATIVE); URINE SPECIFIC GRAVITY 1.017
[2019-12-19 16:55] LABS: URINE AMPHETAMINES SCREEN NEGATIVE; URINE BARBITURATES SCREEN NEGATIVE; URINE BENZODIAZEPINES SCREEN NEGATIVE; URINE COCAINE SCREEN NEGATIVE; URINE MARIJUANA (THC) SCREEN NEGATIVE; URINE METHADONE SCREEN NEGATIVE; URINE PHENCYCLIDINE SCREEN NEGATIVE
[2019-12-19 17:02] LABS: ABSOLUTE EOSINOPHILS # (AUTO) 0.1 10^3/uL (0.0-0.6); ABSOLUTE LYMPHOCYTES (AUTO) 1.8 10^3/uL (0.5-4.7); ABSOLUTE MONOCYTES (AUTO) 0.7 10^3/uL (0.1-1.4); TOTAL CELLS COUNTED % (AUTO) 100 %
[2019-12-19] MEDS ORDERED: OXYTOCIN/0.9 % SODIUM CHLORIDE 30 UNIT/500 ML RTUINJ ONE (17:04)
[2019-12-19] MEDS ORDERED: LIDOCAINE 1% INJ-PF (10 MG/ML) 30 ML SDV ONE (17:04)
[2019-12-19] MEDS ORDERED: MISOPROSTOL 0.2 MG TABLET ONE (17:04)
[2019-12-19] MEDS ORDERED: OXYTOCIN 10 UNIT/ML VIAL ONE (17:04)
[2019-12-19 17:11] LABS: ABSOLUTE NEUT (AUTO) 3.9 10^3/uL (1.7-8.2); BASOPHILS % (AUTO) 0.2 % (0-2); EOSINOPHILS % (AUTO) 1.4 % (0-6); HEMATOCRIT 35.3 % (36.0-47.0); LYMPHOCYTES % (AUTO) 27.7 % (13-45); MEAN CORPUSCULAR HEMOGLOBIN 27.7 pg (27.0-33.4); MEAN CORPUSCULAR VOLUME 82 fl (80-97); MONOCYTES % (AUTO) 10.2 % (3-13); PLATELET COUNT 167 10^3/uL (150-450); RED BLOOD COUNT 4.33 10^6/uL (3.72-5.28); RED CELL DISTRIBUTION WIDTH 15.2 % (11.5-14.0); SEGMENTED NEUTROPHILS % (AUTO) 60.5 % (42-78); WHITE BLOOD COUNT 6.5 10^3/uL (4.0-10.5)
[2019-12-19] MEDS ORDERED: OXYTOCIN/0.9 % SODIUM CHLORIDE 30 UNIT/500 ML RTUINJ IV PRN (17:45)
[2019-12-19] MEDS ORDERED: FENTANYL/BUPIVACAINE/NS/PF 300 MCG/150 ML RTUINJ EPI ONE (19:46)
[2019-12-19] MEDS ORDERED: BUPIVACAINE HCL 0.25 % INJ/PF (2.5 MG/1 ML) 30 ML VIAL ONE (19:46)
[2019-12-19] MEDS ORDERED: EPHEDRINE SULFATE INJ 50 MG/1 ML AMPULE ONE (19:46)
[2019-12-19] MEDS: PENICILLIN G POTASSIUM 2,500,000 UNIT in DEXTROSE 5%-WATER 50 ML IV SCH (20:33)
[2019-12-19] MEDS ORDERED: NALBUPHINE HCL INJ 10 MG/1 ML AMPULE INJ ONE (23:26)
[2019-12-19] MEDS ORDERED: NALBUPHINE HCL INJ 10 MG/1 ML AMPULE ONE (23:27)
[2019-12-20] MEDS: PENICILLIN G POTASSIUM 2,500,000 UNIT in DEXTROSE 5%-WATER 50 ML IV SCH (00:33)
[2019-12-20] MEDS ORDERED: ZOLPIDEM TARTRATE 5 MG TABLET PO PRN (01:08)
[2019-12-20] MEDS ORDERED: DIPH/PERTUSS(ACELL)/TETANUS VAC/PF 0.5 ML SYR (>=10YO) IM PRN (01:08)
[2019-12-20] MEDS ORDERED: BENZOCAINE/MENTHOL AEROSOL SPRAY 56 ML TOP PRN (01:08)
[2019-12-20] MEDS ORDERED: PROMETHAZINE HCL 25 MG TABLET PO PRN (01:08)
[2019-12-20] MEDS ORDERED: ACETAMINOPHEN WITH CODEINE #3 TABLET PO PRN (01:08)
[2019-12-20] MEDS ORDERED: PROMETHAZINE HCL INJ 25 MG/1 ML VIAL IV PRN (01:08)
[2019-12-20] MEDS ORDERED: PSEUDOEPHEDRINE HCL 30 MG TABLET PO PRN (01:08)
[2019-12-20] MEDS ORDERED: ACETAMINOPHEN 650 MG SUPP.RECT PR PRN (01:08)
[2019-12-20] MEDS ORDERED: DIBUCAINE 1% OINTMENT 28 GM TP PRN (01:08)
[2019-12-20] MEDS ORDERED: MEASLES,MUMPS&RUBELLA VACC/PF 0.5 ML VIAL SUBCUT PRN (01:08)
[2019-12-20] MEDS ORDERED: PROMETHAZINE HCL 25 MG SUPP.RECT PR PRN (01:08)
[2019-12-20] MEDS ORDERED: NA PHOS,M-B/NA PHOS,DI-BA (ADULT) 133 ML ENEMA PR PRN (01:08)
[2019-12-20] MEDS ORDERED: MAGNESIUM HYDROXIDE SUSP 30 ML UDCUP PO PRN (01:08)
[2019-12-20] MEDS ORDERED: OXYTOCIN/0.9 % SODIUM CHLORIDE 30 UNIT/500 ML RTUINJ IV PRN (01:08)
[2019-12-20] MEDS ORDERED: GLYCERIN/WITCH HAZEL LEAF 1 EACH MED..WIPE TP PRN (01:08)
[2019-12-20] MEDS ORDERED: DIPHENHYDRAMINE HCL 25 MG CAPSULE PO PRN (01:08)
[2019-12-20] MEDS ORDERED: ACETAMINOPHEN WITH CODEINE #3 TABLET ONE (01:16)
--- NOTE | 2019-12-20 01:50 | Delivery Summary ---
Del Sum A-C Datetime Report Generated by CPN: 12/20/2019 01:50 DELIVERY PERSONNEL DELIVERY PERSONNEL: [id number] Delivery Doctor:: Agnieszka Yee MD Labor and Delivery Nurse:: Patsy Ansari RNblue leather sorter Nurse:: Myrtle Martinez RN Radiation Safety Officer/LICENSED PROSTHETIST: Tonia Jb, ST MATERNAL INFORMATION Delivery Anesthesia: Epidural Medications After Delivery: Pitocin 30 Units in 500ml NS/D5W Estimated Blood Loss (ml): 350 Maternal Complications: None Provider Comments: Called to patients room as she wa complete and +2 station. She pushed through 2 contractions and a viable male was delivered. After the head delivered, nuchal cord x1 was noted loose and easily reduced. Shoulders and rest of the body delivered with minimal difficulty. Baby vigorous and cord clamping delayed for 30 seconds. After cord clamping, cord cut and infant placed skin to skin with Mother. Both MOther and infant stable LABOR SUMMARY EDC: 12/25/2019 00:00 No. Babies in Womb: 1 Attempted: No Labor Anesthesia: Epidural LABOR INFORMATION Reason for Induction: Not Applicable Onset of Labor: 12/19/2019 21:30 Complete Dilatation: 12/20/2019 00:45 Oxytocin: Augmentation Group B Beta Strep: positive Antibiotics # of Doses: 2 Antibiotics Time of Last Dose: 2032 Name of Antibiotic Given: penicillin Steroids Given: None Reason Steroids Not Administered: Not Applicable MEMBRANES Membranes Rupture Method: Spontaneous Rupture of Membranes: 12/19/2019 15:30 Length of Rupture (hr): 9.38 Amniotic Fluid Color: Clear Amniotic Fluid Amount: Moderate Amniotic Fluid Odor: Normal STAGES OF LABOR Stage 1 hr: 3 Stage 1 min: 15 Stage 2 hr: 0 Stage 2 min: 8 Stage 3 hr: 0 Stage 3 min: 5 Total Time in Labor hr: 3 Total Time in Labor min: 28 VAGINAL DELIVERY Episiotomy: None Laceration #1: Perineal Laceration Extension #1: First Degree Laceration Repair: Yes Laceration Repair Note: 3-0 chromic stitch x2 Sharps Count Correct: Yes CSECTION DELIVERY Primary Indication: N/A Secondary Indication: N/A CSection Incidence: N/A Labor: N/A Elective: N/A CSection Incision: N/A BABY A INFORMATION Infant Delivery Date/Time: 12/20/2019 00:53 Method of Delivery: Vaginal Nurse Controlled Delivery: No Born in Route : No : N/A Forceps: N/A Vacuum Extraction: N/A Shoulder Dystocia : No PRESENTATION/POSITION BABY A Presentation: Cephalic Cephalic Presentation: Vertex Vertex Position: Right Occipital Anterior Breech Presentation: N/A PLACENTA INFORMATION BABY A Placenta Delivery Time : 12/20/2019 00:58 Placenta Method of Delivery: Spontaneous Placenta Status: Delivered SCORES BABY A Heart Rate 1 min: >100 bpm Resp Effort 1 min: Good Cry Reflex Irritability 1 min: Cough or Sneeze or Pulls Away Muscle Tone 1 min: Active Motion Color 1 min: Blue/Pale Resuscitation Effort 1 min: Tactile Stimulation SCORE 1 MIN: 8 Heart Rate 5 min: >100 bpm Resp Effort 5 min: Good Cry Reflex Irritability 5 min: Cough or Sneeze or Pulls Away Muscle Tone 5 min: Active Motion Color 5 min: Body [place], Extremities Blue Resuscitation Effort 5 min: Tactile Stimulation SCORE 5 MIN: 9 INFORMATION BABY A Gestational Age at Delivery: 39.2 Gestational Status: Full Term- 39- 40.6 Weeks Infant Outcome : Liveborn Condition : Stable Infant Sex: Male IDENTIFICATION BABY A Infant Verification Date/Time: 12/20/2019 01:09 ID Band Number: [id number] Mother's Name Verified: Yes Infant RN Verifying Infant: J.Field, RN and A.Coolidge, RN WEIGHT/LENGTH BABY A Birthweight (gm): 3819 Infant Weight (lb): 8 Infant Weight (oz): 7 Infant Length (in): 19.00 Length (cm): 48.26 CORD INFORMATION BABY A No. Cord Vessels: 3 Nuchal Cord : Around Neck x1, Loose Cord Blood Taken: Yes-For Eval (Mom's Blood Type - or O+) Infant Suction: Mouth; Nose ASSESSMENT BABY A Infant Complications: None Physical Findings at Delivery: Within Normal Limits Infant Respirations: Appears Normal Skin to Skin: Yes Die Grinder/ALS Called : No Transferred To: Remains with Mother BABY B INFORMATION : N/A SIGNATURES Signature: with User ID: Shin : with User ID: Shin
[2019-12-20] MEDS ORDERED: IBUPROFEN 800 MG TABLET PO ONE (02:15)
[2019-12-20] MEDS: IBUPROFEN 800 MG TABLET PO SCH ×3 (05:30→21:13)
--- NOTE | 2019-12-20 09:38 | PDOC PROGRESS REPORT ---
Subjective-OB Progress Note for:: 12/20/19 Subjective: Doing well, no c/o, voiding, baby in room, scant lochia, plans to breast and bottle feed Physical Exam (OB) Vital Signs: Temp Pulse Resp BP Pulse Ox 98.0 F 70 17 118/72 96 12/20/19 08:22 12/20/19 08:22 12/20/19 08:22 12/20/19 08:22 12/20/19 05:00 Intake & Output 12/19/19 12/20/19 12/21/19 06:59 06:59 06:59 Output Total 550 Balance -550 Weight 110.9 kg - PIH/Pre-Eclampsia DTR's: 2 + Clonus: Negative Headache: Absent Epigastric Pain: No Visual Changes: No - Lochia Lochia Amount: Small 10-25 ml Lochia Color: Rubra/Red - Abdomen Description: Soft, Round Hernia Present: No Fundal Description: Firm, Midline Fundal Height: u/u - u/2 Objective-Diagnostic Laboratory: 12/19/19 16:40 12/19/19 12/19/19 12/19/19 16:00 16:40 16:40 WBC 6.5 RBC 4.33 Hgb 12.0 Hct 35.3 L MCV 82 MCH 27.7 MCHC 34.0 RDW 15.2 H Plt Count 167 Seg Neutrophils % 60.5 Urine Color YELLOW Urine Appearance SLIGHTLY-CLOUDY Urine pH 7.0 Ur Specific [place] 1.017 Urine Protein 30 H Urine Glucose (UA) NEGATIVE Urine Ketones NEGATIVE Urine Blood NEGATIVE Urine Nitrite NEGATIVE Ur Leukocyte Esterase TRACE H Blood Type O POSITIVE Antibody Screen NEGATIVE Assessment and Plan(PN) - Assessment and Plan (1) Multiparity Is this a current diagnosis for this admission?: Yes (3) Spontaneous rupture of amniotic membranes Is this a current diagnosis for this admission?: Yes (4) Vaginal delivery Is this a current diagnosis for this admission?: Yes - Time Spent with Patient Time with patient: Less than 15 minutes Medications reviewed and adjusted accordingly: Yes - Disposition Anticipated Discharge: Home Within: within 24 hours
[2019-12-20] MEDS: ACETAMINOPHEN WITH CODEINE #3 TABLET PO PRN ×2 (10:51→17:13)
[2019-12-20] MEDS: DOCUSATE SODIUM 100 MG CAPSULE PO SCH ×2 (10:56→17:52)
[2019-12-20] MEDS: SENNOSIDES/DOCUSATE 8.6-50 MG 1 EACH TABLET PO SCH (10:56)
[2019-12-20] MEDS: FERROUS SULFATE 325 MG TABLET PO SCH ×2 (10:56→17:52)
[2019-12-20] MEDS: FAMOTIDINE 20 MG TABLET PO SCH ×2 (10:57→21:13)
[2019-12-20] MEDS: PRENATAL VITAMIN W DHA CAPSULE PO SCH (10:57)
[2019-12-21] MEDS: ACETAMINOPHEN WITH CODEINE #3 TABLET PO PRN ×2 (02:50→08:52)
[2019-12-21] MEDS: IBUPROFEN 800 MG TABLET PO SCH ×3 (05:34→21:13)
[2019-12-21 06:48] LABS: HEMATOCRIT 27.8 % (36.0-47.0); MEAN CORPUSCULAR HEMOGLOBIN 28.5 pg (27.0-33.4); MEAN CORPUSCULAR HGB CONC 34.5 g/dL (32.0-36.0); MEAN CORPUSCULAR VOLUME 83 fl (80-97); PLATELET COUNT 143 10^3/uL (150-450); RED BLOOD COUNT 3.36 10^6/uL (3.72-5.28); RED CELL DISTRIBUTION WIDTH 15.1 % (11.5-14.0); WHITE BLOOD COUNT 9.5 10^3/uL (4.0-10.5)
[2019-12-21 06:51] LABS: HEMOGLOBIN 9.6 g/dL (12.0-15.5)
[2019-12-21] MEDS: DOCUSATE SODIUM 100 MG CAPSULE PO SCH ×2 (09:43→17:05)
[2019-12-21] MEDS: PRENATAL VITAMIN W DHA CAPSULE PO SCH (09:43)
[2019-12-21] MEDS: FERROUS SULFATE 325 MG TABLET PO SCH ×2 (09:43→17:05)
[2019-12-21] MEDS: SENNOSIDES/DOCUSATE 8.6-50 MG 1 EACH TABLET PO SCH (09:43)
--- NOTE | 2019-12-21 11:01 | PDOC PROGRESS REPORT ---
Subjective-OB Progress Note for:: 12/21/19 Subjective: Pt doing well, no concerns. Reports light bleeding, reg diet, and voiding without difficulty. Physical Exam (OB) Vital Signs: Temp Pulse Resp BP Pulse Ox 97.5 F 63 16 102/71 98 12/21/19 07:20 12/21/19 07:20 12/21/19 07:20 12/21/19 07:20 12/21/19 07:20 Intake & Output 12/20/19 12/21/19 12/22/19 06:59 06:59 06:59 Intake Total 400 Output Total 550 Balance -550 400 Weight 110.9 kg - Lochia Lochia Amount: Scant < 10 ml Lochia Color: Rubra/Red - Abdomen Description: Tender, Soft Hernia Present: No Fundal Description: Firm Fundal Height: u/u - u/2 Objective-Diagnostic Laboratory: 12/21/19 06:29 12/21/19 06:29 WBC 9.5 RBC 3.36 L Hgb 9.6 L D Hct 27.8 L MCV 83 MCH 28.5 MCHC 34.5 RDW 15.1 H Plt Count 143 L Assessment and Plan(PN) - Assessment and Plan (1) GBS (group B Streptococcus carrier), +RV culture, currently Is this a current diagnosis for this admission?: Yes (2) Multiparity Is this a current diagnosis for this admission?: Yes (3) Spontaneous rupture of amniotic membranes Is this a current diagnosis for this admission?: Yes (4) Vaginal delivery Is this a current diagnosis for this admission?: Yes - Time Spent with Patient Time with patient: Less than 15 minutes Medications reviewed and adjusted accordingly: Yes - Disposition Anticipated Discharge: Home Within: within 24 hours
[2019-12-21] MEDS: FAMOTIDINE 20 MG TABLET PO SCH ×2 (13:34→21:13)
[2019-12-22] MEDS: ACETAMINOPHEN WITH CODEINE #3 TABLET PO PRN (03:27)
[2019-12-22] MEDS: IBUPROFEN 800 MG TABLET PO SCH (06:11)
[2019-12-22] MEDS: PRENATAL VITAMIN W DHA CAPSULE PO SCH (09:47)
[2019-12-22] MEDS: FAMOTIDINE 20 MG TABLET PO SCH (09:48)
[2019-12-22] MEDS: FERROUS SULFATE 325 MG TABLET PO SCH (09:48)
[2019-12-22] MEDS: DOCUSATE SODIUM 100 MG CAPSULE PO SCH (09:48)
[2019-12-22] MEDS: SENNOSIDES/DOCUSATE 8.6-50 MG 1 EACH TABLET PO SCH (09:48)
[2019-12-22 10:56] VITALS: BP 130/75
--- NOTE | 2019-12-22 11:34 | PDOC DISCHARGE SUMMARY ---
Impression - Admit/DC Date/PCP Admission Date/Primary Care Provider: 12/19/19 16:34 KARRIE HAQUE MD Discharge Date: 12/22/19 - Discharge Diagnosis (1) GBS (group B Streptococcus carrier), +RV culture, currently Is this a current diagnosis for this admission?: Yes (2) Multiparity Is this a current diagnosis for this admission?: Yes (3) Spontaneous rupture of amniotic membranes Is this a current diagnosis for this admission?: Yes (4) Vaginal delivery Is this a current diagnosis for this admission?: Yes - Additional Information Resuscitation Status: Full Code Discharge Diet: Regular Discharge Activity: Balance Activity w/Rest, Pelvic Rest Referrals: KARRIE HAQUE MD [Primary Care Provider] - Prescriptions: Ibuprofen [Motrin 800 mg Tablet] 800 mg PO Q8HP PRN #60 tablet PRN Reason: Home Medications: Vit,Calc76/Iron/Folic [Prenatabs Rx Tablet] 1 tab PO DAILY 12/16/19 Ibuprofen [Motrin 800 mg Tablet] 800 mg PO Q8HP PRN #60 tablet 12/21/19 HPI Reason(s) for Admission: Onset of Labor, PROM Procedures: NST Intrapartum Procedure(s): Spontaneous Vaginal Delivery Complication(s): Laceration-Perineal Laceration-Degree: 1st Results Laboratory Results: WBC 9.5 10^3/uL (4.0-10.5) 12/21/19 06:29 RBC 3.36 10^6/uL (3.72-5.28) L 12/21/19 06:29 Hgb 9.6 g/dL (12.0-15.5) L D 12/21/19 06:29 Hct 27.8 % (36.0-47.0) L 12/21/19 06:29 MCV 83 fl (80-97) 12/21/19 06:29 MCH 28.5 pg (27.0-33.4) 12/21/19 06:29 MCHC 34.5 g/dL (32.0-36.0) 12/21/19 06:29 RDW 15.1 % (11.5-14.0) H 12/21/19 06:29 Plt Count 143 10^3/uL (150-450) L 12/21/19 06:29 Lymph % (Auto) 27.7 % (13-45) 12/19/19 16:40 [place] % (Auto) 10.2 % (3-13) 12/19/19 16:40 Eos % (Auto) 1.4 % (0-6) 12/19/19 16:40 Baso % (Auto) 0.2 % (0-2) 12/19/19 16:40 Absolute Neuts (auto) 3.9 10^3/uL (1.7-8.2) 12/19/19 16:40 Absolute Lymphs (auto) 1.8 10^3/uL (0.5-4.7) 12/19/19 16:40 Absolute Monos (auto) 0.7 10^3/uL (0.1-1.4) 12/19/19 16:40 Absolute Eos (auto) 0.1 10^3/uL (0.0-0.6) 12/19/19 16:40 Absolute Basos (auto) 0.0 10^3/uL (0.0-0.2) 12/19/19 16:40 Seg Neutrophils % 60.5 % (42-78) 12/19/19 16:40 Urine Color YELLOW 12/19/19 16:00 Urine Appearance SLIGHTLY-CLOUDY 12/19/19 16:00 Urine pH 7.0 (5.0-9.0) 12/19/19 16:00 Ur Specific [place] 1.017 12/19/19 16:00 Urine Protein 30 mg/dL (NEGATIVE) H 12/19/19 16:00 Urine Glucose (UA) NEGATIVE mg/dL (NEGATIVE) 12/19/19 16:00 Urine Ketones NEGATIVE mg/dL (NEGATIVE) 12/19/19 16:00 Urine Blood NEGATIVE (NEGATIVE) 12/19/19 16:00 Urine Nitrite NEGATIVE (NEGATIVE) 12/19/19 16:00 Urine Bilirubin NEGATIVE (NEGATIVE) 12/19/19 16:00 Urine Urobilinogen 2.0 mg/dL (<2.0) H 12/19/19 16:00 Ur Leukocyte Esterase TRACE (NEGATIVE) H 12/19/19 16:00 Urine Ascorbic Acid NEGATIVE (NEGATIVE) 12/19/19 16:00 Urine Opiates Screen NEGATIVE 12/19/19 16:00 Urine Methadone Screen NEGATIVE 12/19/19 16:00 Ur Barbiturates Screen NEGATIVE 12/19/19 16:00 Ur Phencyclidine Scrn NEGATIVE 12/19/19 16:00 Ur Amphetamines Screen NEGATIVE 12/19/19 16:00 U Benzodiazepines Scrn NEGATIVE 12/19/19 16:00 Urine Cocaine Screen NEGATIVE 12/19/19 16:00 U Marijuana (THC) Screen NEGATIVE 12/19/19 16:00 RPR NONREACTIVE (NONREACTIVE) 12/19/19 16:40 Blood Type O POSITIVE 12/19/19 16:40 Antibody Screen NEGATIVE 12/19/19 16:40 Plan Plan of Treatment: f/u at [facility] 4 wks for PPCK Time Spent: Less than 30 Minutes
== END 2019-12-22 13:33 | disposition home or self-care (01) | DRG 807 ==
LOC: LC 15:39 → LR 16:34 → 2S 12-20 03:21
PROVIDERS: ADMIT Obstetrics & Gynecology; ATTEND Obstetrics & Gynecology
PROC: 10E0XZZ Delivery of Products of Conception, External Approach (ICD-10-PCS; principal; 2019-12-20)
PROC: 0HQ9XZZ Repair Perineum Skin, External Approach (ICD-10-PCS; 2019-12-20)
DX: O99.824 Streptococcus B carrier state complicating childbirth (principal); Z37.0 Single live birth; O70.0 First degree perineal laceration during delivery; O69.81X0 Labor and delivery complicated by cord around neck, without compression, not applicable or unspecified; Z87.891 Personal history of nicotine dependence; Z3A.39 39 weeks gestation of pregnancy
CPT/HCPCS: 1967; 36415; 80307; 81005; 85025; 85027; 86592; 86850; 86900; 86901; C1758; J2300; J2540; J2590; J3010; J3490; J7060

== ENCOUNTER 2020-03-11 16:21 | Emergency (ER) | payer MEDICAID ==
[2020-03-11 16:28] VITALS: BP 142/90
[2020-03-11] MEDS ORDERED: LIDOCAINE 1% INJ-PF (10 MG/ML) 30 ML SDV INJ ONE (17:03)
--- NOTE | 2020-03-11 17:04 | ER Document Report ---
HPI - HPI Patient complains to provider of: finger laceration Time Seen by Provider: 03/11/20 16:58 Notes: 34-year-old female to the emergency department with complaints of a laceration to right pinky finger that occurred just prior to arrival. She was doing dishes when she cut it on a broken glass. She states that she is up-to-date on her tetanus shot. She is right-hand dominant. She denies any difficulty moving the pinky. She denies any other injuries. She states she had some difficulty getting it to stop bleeding. - ROS Systems Reviewed and Negative: Yes All other systems reviewed and negative - CONSTITUTIONAL Constitutional: REPORTS: Fever, Chills - EENT EENT: DENIES: Sore Throat, Ear Pain, Congestion - NEURO Neurology: DENIES: Headache - CARDIOVASCULAR Cardiovascular: DENIES: Chest pain - RESPIRATORY Respiratory: DENIES: Trouble Breathing, Coughing - GASTROINTESTINAL Gastrointestinal: DENIES: Abdominal Pain, Nausea, Patient vomiting, Diarrhea - MUSCULOSKELETAL Musculoskeletal: REPORTS: Extremity pain Notes: Right pinky finger pain - DERM Skin Color: Normal Skin Problems: Laceration - Laceration to the right pinky finger Past Medical History - General Information source: Patient - Social History Smoking Status: Never Smoker Frequency of alcohol use: None Drug Abuse: None Family History: Arthritis, Hypertension, Malignancy, Other - copd and asthma Pulmonary Medical History: Reports: Hx Bronchitis - 2013 Renal/ Medical History: Reports: Hx Ovarian Cysts. Denies: Hx Peritoneal Dialysis Past Surgical History: Reports: Hx Gynecologic Surgery - colposcopy - Immunizations Immunizations up to date: Yes Hx Diphtheria, Pertussis, Tetanus Vaccination: Yes - 2010 [facility] Provider Document - CONSTITUTIONAL Exam Limitations: No Limitations General Appearance: WD/WN, No Apparent Distress - INFECTION CONTROL TRAVEL OUTSIDE OF THE [place] IN LAST 30 DAYS: No - HEENT HEENT: Atraumatic, Normocephalic, PERRLA - NECK Neck: Normal Inspection, Supple - RESPIRATORY Respiratory: Breath Sounds Normal, No Respiratory Distress. negative: Rales, Rhonchi, Wheezing - CARDIOVASCULAR Cardiovascular: Regular Rate, Regular Rhythm, No Murmur - GI/ABDOMEN Gastrointestinal: Abdomen Soft, Abdomen Non-Tender - MUSCULOSKELETAL/EXTREMETIES Musculoskeletal/Extremeties: FATUMA FROM Notes: Patient has full range of motion of all fingers against resistance in testing of both flexor tendons and extensor tendons with 5 out of 5 strength. Adduction and abduction intact. No evidence for tendon laceration. Bleeding controlled see skin for further discussion of a laceration - NEURO Level of Consciousness: Awake, Alert, Appropriate - DERM Integumentary: Laceration - There is a laceration to the right pinky finger on the thumb side of the pinky distally. It does not involve the nail. The bleeding is controlled. No evidence for tendon laceration. Wound was explored and there is no evidence for foreign body Course - Re-evaluation Re-evalutation: Impression: Right pinky finger laceration. Patient tolerated repair well. Will send home with pain medicine. Suture removal in 7 to 10 days. Return if any worsening pain, fevers, swelling, redness. Patient agrees with the plan she is getting put in a finger splint to aid and protecting the wound. - Vital Signs Vital signs: Temp Pulse Resp BP Pulse Ox 98.2 F 85 18 142/90 H 99 03/11/20 16:27 03/11/20 16:27 03/11/20 16:27 03/11/20 16:27 03/11/20 16:27 Procedures - Laceration/Wound Repair Right Finger 5th digit Time completed: 18:03 Wound length (cm): 2 Wound's Depth, Shape: Superficial Laceration pre-procedure: Sterile drapes applied, Shur-Clens applied Anesthetic type: 1% Lidocaine Volume Anesthetic (mLs): 2 Wound explored: Clean, No foreign body removed Irrigated w/ Saline (mLs): 50 Wound Debrided: Minimal Wound Repaired With: Sutures Suture Size/Type: 4:0, Prolene Number of Sutures: 5 Layer Closure?: No Post-procedure wound care: Splint applied, Other - non adhesive Post-procedure NV exam normal: Yes Complications: No Discharge - Discharge Clinical Impression: Laceration of right little finger Qualifiers: Encounter type: initial encounter Damage to nail status: without damage Foreign body presence: without foreign body Qualified Code(s): S61.216A - Laceration without foreign body of right little finger without damage to nail, initial encounter Condition: Stable Disposition: HOME, SELF-CARE Instructions: Laceration Care ([facility]), Prophylactic Antibiotic ([facility]) Additional Instructions: Keep wound clean and dry. Wash daily with warm soapy water with a Q-tip. Do not get soaking wet for first 3 days. Take antibiotics as prescribed. Return if worsening pain, swelling, redness, purulent drainage from the site, fevers. Suture removal in 7 to 10 days. Prescriptions: Cephalexin Monohydrate [Keflex 500 mg Capsule] 500 mg PO QID #28 capsule Naproxen [Naprosyn 375 Mg Tablet] 375 mg PO BID #20 tablet Forms: Return to Work Referrals: [facility] [Outside] - Follow up in 1 week
== END 2020-03-11 18:31 | disposition home or self-care (01) ==
LOC: ER 16:21
DX: S61.216A Laceration without foreign body of right little finger without damage to nail, initial encounter (principal); W25.XXXA Contact with sharp glass, initial encounter
CPT/HCPCS: 12001; 99282; J3490

== ENCOUNTER → 2020-04-24 | Outpatient (CLI) | payer MEDICAID ==
[~2020-04-24] MED LIST: FENTANYL CITRATE INJ/PF 100 MCG/2 ML AMPUL ONE; LACTATED RINGERS 1000 ML IV PRN; LIDOCAINE 0.5% INJ-PF (5 MG/ML) 50 ML SDV SUBCUT PRN; MIDAZOLAM 2 MG/2 ML INJ ONE; PROPOFOL INJ 200 MG/20 ML VIAL IV ONE; SCOPOLAMINE HYDROBROMIDE 1.5 MG PATCH.TD72 TD PRN
[2020-04-24 12:32] VITALS: BP 134/90
[2020-04-24 13:13] LABS: HEMATOCRIT 38.3 % (36.0-47.0); HEMOGLOBIN 12.7 g/dL (12.0-15.5); MEAN CORPUSCULAR HGB CONC 33.1 g/dL (32.0-36.0); MEAN CORPUSCULAR VOLUME 79 fl (80-97); PLATELET COUNT 256 10^3/uL (150-450); RED BLOOD COUNT 4.86 10^6/uL (3.72-5.28); RED CELL DISTRIBUTION WIDTH 16.8 % (11.5-14.0); WHITE BLOOD COUNT 6.5 10^3/uL (4.0-10.5)
[2020-04-24 13:15] LABS: APPEARANCE,URINE SLIGHTLY-CLOUDY; BILIRUBIN,URINE NEGATIVE (NEGATIVE); COLOR,URINE YELLOW; GLUCOSE, URINE NEGATIVE (NEGATIVE); KETONES,URINE NEGATIVE (NEGATIVE); LEUKOCYTE ESTERASE,URINE LARGE (NEGATIVE); NITRITE,URINE NEGATIVE (NEGATIVE); PROTEIN,URINE NEGATIVE (NEGATIVE); URINE SPECIFIC GRAVITY 1.015; UROBILINOGEN,URINE NEGATIVE mg/dL (<2.0)
== END ==
LOC: OD 11:55 → EDSTATUS 05-01 12:45
PROVIDERS: ATTEND Obstetrics & Gynecology
DX: Z01.812 Encounter for preprocedural laboratory examination (principal); Z20.828 Contact with and (suspected) exposure to other viral communicable diseases
CPT/HCPCS: 36415; 85027; 87635; 81005; C9803; J2250; J2704; J3010